=== PATIENT | male | born 1965 | race Caucasian/White ===

== ENCOUNTER 2018-10-29 14:59 | Emergency (ER) | payer OTHER ==
[~2018-10-29] VITALS: Ht 185.4 cm; Wt 104.3 kg
[2018-10-29 16:51] LABS: BASO % 1 % (0-3); EOS % 0 % (0-3); HEMOGLOBIN 14.5 g/dL (13.0-17.5); LYMPH # 1.9 x10^3/uL (1.0-4.8); LYMPH % 32 % (24-48); MEAN CORPUSCULAR HEMOGLOBIN 31 pg (25-35); MEAN CORPUSCULAR HGB CONC 36 g/dL (31-37); MEAN CORPUSCULAR VOLUME 87 fL (79-100); MONO # 0.3 x10^3/uL (0.0-1.1); MONO % 6 % (0-9); NEUT # 3.6 x10^3/uL (1.8-7.7); NEUT % 61 % (31-73); PLATELET COUNT 173 x10^3/uL (140-400); RED CELL DISTRIBUTION WIDTH 13.2 % (11.5-14.5); WHITE BLOOD COUNT 5.9 x10^3/uL (4.0-11.0)
[2018-10-29 17:00] LABS: PROTHROMBIN TIME PATIENT 12.5 SEC (11.7-14.0)
[2018-10-29 17:12] LABS: CALCIUM 9.6 mg/dL (8.5-10.1); GFR 78.2; POTASSIUM 4.5 mmol/L (3.5-5.1)
--- NOTE | 2018-10-29 17:15 | RAD ---
CT HEAD WO CONTRAST Indication: Headache. Exposure: One or more of the following individualized dose reduction techniques were utilized for this examination: 1. Automated exposure control 2. Adjustment of the mA and/or kV according to patient size 3. Use of iterative reconstruction technique. Technique: Standard imaging without intravenous contrast. No evidence of acute intracranial hemorrhage, mass effect, midline shift or abnormal extra-axial fluid collection. Multiple areas of ossification are incidentally noted along the falx. Mild prominence of the bifrontal extra-axial CSF space, likely due to mild atrophy. There is also mild prominence of the right frontal sulci bilaterally. The orbits appear unremarkable. No significant scalp swelling. Partially visualized sinuses demonstrate some tissue within the right maxillary sinus, partially seen, likely mucous retention cyst or polyp versus some mucosal thickening. No evidence of acute skull abnormality. 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 IMPRESSION: 1. No evidence of acute intracranial hemorrhage. 2. Mild atrophic change, particularly in the frontal region. 3. Partially visualized right maxillary sinus disease. Electronically signed by: Eusebio Johnson MD (10/29/2018 5:12 PM) [id number]
[2018-10-29 17:17] LABS: ALBUMIN 3.5 g/dL (3.4-5.0); MAGNESIUM 1.7 mg/dL (1.8-2.4); TOTAL BILIRUBIN 1.3 mg/dL (0.2-1.0)
[2018-10-29] MEDS ORDERED: IV NORMAL SALINE 1000ML BAG 1,000 ML IV ONE (17:30)
--- NOTE | 2018-10-29 17:37 | PHYS DOC ---
Past Medical History Past Medical History: CHF, Diabetes-Type II, High Cholesterol, Hypertension, VA, Stroke Additional Past Medical Histor: GOUT, NEUROPATHY. Past Surgical History: Other Additional Past Surgical Histo: ABDOMEN EXPLORATORY SURGEY Alcohol Use: Rarely Drug Use: None Adult General Chief Complaint Chief Complaint: MULTIPLE COMPLAINTS HPI HPI Patient is a 52 year old AA male who presents to the ER with concerns of having black sticky emesis earlier this morning. PT also complains of generalized body aches, nausea, epigastric abdominal pain, and a headache behind his right eye. He denies any fever, cough, vision changes, dizziness, diarrhea, or blood in his stools. He denies any shortness of breath or palpitations. PT denies history of a stomach ulcer or acid reflux. He currently rates his pain a 9/10 on the pain scale, there are no alleviating or exacerbating factors. Review of Systems Review of Systems Constitutional: Denies fever or chills [] Eyes: Denies change in visual acuity, redness, or eye pain [] HENT: Denies nasal congestion or sore throat [] Respiratory: Denies cough or shortness of breath [] Cardiovascular: No additional information not addressed in HPI [] GI: see HPI : Denies dysuria or hematuria [] Musculoskeletal: Denies back pain or joint pain [] Integument: Denies rash or skin lesions [] Neurologic: Denies focal weakness or sensory changes; see HPI Endocrine: Denies polyuria or polydipsia [] Complete systems were reviewed and found to be within normal limits, except as documented in this note. Current Medications Current Medications Current Medications Medications (Trade) Dose Ordered Sig/Ana Start Time Stop Time Status Last Admin Dose Admin Dexamethasone Sodium Phosphate (Decadron) 10 mg 1X ONCE 10/29/18 18:00 10/29/18 17:40 DC Ketorolac Tromethamine (Toradol 15mg Vial) 15 mg 1X ONCE 10/29/18 18:00 10/29/18 17:40 DC Magnesium Sulfate 50 ml @ 25 mls/hr 1X ONCE 10/29/18 18:45 10/29/18 20:44 Prochlorperazine Edisylate (Compazine) 10 mg 1X ONCE 10/29/18 18:00 10/29/18 17:40 DC Sodium Chloride 1,000 ml @ 1,000 mls/hr 1X ONCE 10/29/18 17:30 10/29/18 18:29 10/29/18 17:32 1,000 MLS/HR Allergies Allergies Allergies Coded Allergies Type Severity Reaction Last Updated Verified No Known Drug Allergies 10/29/18 No Physical Exam Physical Exam Constitutional: Well developed, well nourished, no acute distress, non-toxic appearance. [] HENT: Normocephalic, atraumatic, bilateral external ears normal, oropharynx moist, no oral exudates, nose normal. [] Eyes: PERRLA, EOMI, conjunctiva normal, no discharge. [] Neck: Normal range of motion, no tenderness, supple, no stridor. [] Cardiovascular:Heart rate regular rhythm, no murmur [] Lungs & Thorax: Bilateral breath sounds clear to auscultation [] Abdomen: Bowel sounds normal, soft, no tenderness, no masses, no pulsatile ma sses. [] Skin: Warm, dry, no erythema, no rash. [] Back: No tenderness, no CVA tenderness. [] Extremities: No tenderness, no cyanosis, no clubbing, ROM intact, no edema. [] Neurologic: Alert and oriented X 3, normal motor function, normal sensory function, no focal deficits noted. [] Psychologic: Affect normal, judgement normal, mood normal. [] Current Patient Data Vital Signs Vital Signs Date Time Temp Pulse Resp B/P (MAP) Pulse Ox O2 Delivery O2 Flow Rate FiO2 10/29/18 15:51 98.3 88 16 149/84 (105) 96 98.3 Lab Values Laboratory Tests Test 10/29/18 16:36 10/29/18 17:32 White Blood Count 5.9 x10^3/uL (4.0-11.0) Red Blood Count 4.70 x10^6/uL (4.30-5.70) Hemoglobin 14.5 g/dL (13.0-17.5) Hematocrit 41.0 % (39.0-53.0) Mean Corpuscular Volume 87 fL (79-100) Mean Corpuscular Hemoglobin 31 pg (25-35) Mean Corpuscular Hemoglobin Concent 36 g/dL (31-37) Red Cell Distribution Width 13.2 % (11.5-14.5) Platelet Count 173 x10^3/uL (140-400) Neutrophils (%) (Auto) 61 % (31-73) Lymphocytes (%) (Auto) 32 % (24-48) Monocytes (%) (Auto) 6 % (0-9) Eosinophils (%) (Auto) 0 % (0-3) Basophils (%) (Auto) 1 % (0-3) Neutrophils # (Auto) 3.6 x10^3/uL (1.8-7.7) Lymphocytes # (Auto) 1.9 x10^3/uL (1.0-4.8) Monocytes # (Auto) 0.3 x10^3/uL (0.0-1.1) Eosinophils # (Auto) 0.0 x10^3/uL (0.0-0.7) Basophils # (Auto) 0.0 x10^3/uL (0.0-0.2) Prothrombin Time 12.5 SEC (11.7-14.0) Prothrombin Time INR 1.0 (0.8-1.1) Activated Partial Thromboplast Time 25 SEC (24-38) Sodium Level 139 mmol/L (136-145) Potassium Level 4.5 mmol/L (3.5-5.1) Chloride Level 103 mmol/L (98-107) Carbon Dioxide Level 29 mmol/L (21-32) Anion Gap 7 (6-14) Blood Urea Nitrogen 13 mg/dL (8-26) Creatinine 1.0 mg/dL (0.7-1.3) Estimated GFR (Cockcroft-Gault) 78.2 BUN/Creatinine Ratio 13 (6-20) Glucose Level 295 mg/dL (70-99) H Calcium Level 9.6 mg/dL (8.5-10.1) Magnesium Level 1.7 mg/dL (1.8-2.4) L Total Bilirubin 1.3 mg/dL (0.2-1.0) H Aspartate Amino Transferase (AST) 11 U/L (15-37) L Alanine Aminotransferase (ALT) 15 U/L (16-63) L Alkaline Phosphatase 98 U/L (46-116) Total Protein 7.0 g/dL (6.4-8.2) Albumin 3.5 g/dL (3.4-5.0) Albumin/Globulin Ratio 1.0 (1.0-1.7) Lipase 61 U/L (73-393) L Stool Occult Blood Negative (NEG) Laboratory Tests 10/29/18 16:36 Laboratory Tests 10/29/18 16:36 EKG EKG [] Radiology/Procedures Radiology/Procedures PROCEDURE: CT HEAD WO CONTRAST CT HEAD WO CONTRAST Indication: Headache. Exposure: One or more of the following individualized dose reduction techniques were utilized for this examination: 1. Automated exposure control 2. Adjustment of the mA and/or kV according to patient size 3. Use of iterative reconstruction technique. Technique: Standard imaging without intravenous contrast. No evidence of acute intracranial hemorrhage, mass effect, midline shift or abnormal extra-axial fluid collection. Multiple areas of ossification are incidentally noted along the falx. Mild prominence of the bifrontal extra-axial CSF space, likely due to mild atrophy. There is also mild prominence of the right frontal sulci bilaterally. The orbits appear unremarkable. No significant scalp swelling. Partially visualized sinuses demonstrate some tissue within the right maxillary sinus, partially seen, likely mucous retention cyst or polyp versus some mucosal thickening. No evidence of acute skull abnormality. 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 IMPRESSION: 1. No evidence of acute intracranial hemorrhage. 2. Mild atrophic change, particularly in the frontal region. 3. Partially visualized right maxillary sinus disease.[] Course & Med Decision Making Course & Med Decision Making Pertinent Labs and Imaging studies reviewed. (See chart for details) [] Dragon Disclaimer Dragon Disclaimer This electronic medical record was generated, in whole or in part, using a voice recognition dictation system. Departure Departure Impression: Primary Impression: Hypomagnesemia Additional Impressions: Nausea & vomiting Body aches Disposition: 01 HOME, SELF-CARE Condition: STABLE Referrals: NO PCP (PCP) Patient Instructions: Hypomagnesemia, Nausea and Vomiting, [id number] Additional Instructions: Fill prescriptions and use them as directed. Recommend clear fluids for the next 24 hours. Then you may advance to bland foods such as bananas, rice, applesauce, and dry toast. Follow-up with your primary care doctor in the next 1-2 days. Return to the emergency room if your symptoms worsen. Scripts Ondansetron (ONDANSETRON ODT) 4 Mg Tab.rapdis 1 TAB PO PRN Q6-8HRS PRN for NAUSEA/VOMITING, #16 TAB Prov: BINTA DUKE APRN 10/29/18 Problem Qualifiers Additional Impressions: Nausea & vomiting Vomiting type: unspecified Vomiting Intractability: non-intractable Qualified Codes: R11.2 - Nausea with vomiting, unspecified BINTA DUKE BOTTOMING MACHINE OPERATOR Oct 29, 2018 17:37
[2018-10-29 17:48] LABS: FECAL OB PT NEGATIVE (NEG)
[2018-10-29] MEDS ORDERED: KETOROLAC 15 MG/ML VIAL. IV ONE (18:00)
[2018-10-29] MEDS ORDERED: PROCHLORPERAZINE 10 MG/2 ML VIAL. IV ONE (18:00)
[2018-10-29] MEDS ORDERED: DEXAMETHASONE SOD PHOS 20 MG/5 ML VIAL. IV ONE (18:00)
[2018-10-29] MEDS ORDERED: ONDA4TAB12 PO (18:17)
[2018-10-29] MEDS ORDERED: MAGNESIUM SULFATE 2GM 50 ML IV ONE (18:45)
[2018-10-29 19:44] VITALS: BP 160/83
== END 2018-10-29 20:08 | disposition home or self-care (01) ==
LOC: ER 14:59
DX: E83.42 Hypomagnesemia (principal); R11.2 Nausea with vomiting, unspecified; M79.18 Myalgia, other site; R10.13 Epigastric pain; I11.0 Hypertensive heart disease with heart failure; I50.9 Heart failure, unspecified; I25.2 Old myocardial infarction; E11.40 Type 2 diabetes mellitus with diabetic neuropathy, unspecified; Z86.73 Personal history of transient ischemic attack (TIA), and cerebral infarction without residual deficits
CPT/HCPCS: 36415; 70450; 80053; 82274; 83690; 83735; 85025; 85610; 85730; 96361; 96365; 99285; J3475; J7030

== ENCOUNTER 2020-09-12 21:55 | Inpatient (IN) | payer OTHER ==
[~2020-09-12] VITALS: Ht 182.9 cm; Wt 127.4 kg
[~2020-09-12 21:55] MED LIST: ONDA4TAB12 PO
[2020-09-12 22:16] LABS: BASE EXCESS ABG 2 mmol/L (-3-3); HCO3 ABG 26 mmol/L (21-28); PCO2 ABG 42 mmHg (35-46); PO2 ABG 117 mmHg (75-108); SAT O2 ABG 98 % (92-99)
[2020-09-12 22:17] LABS: FIO2 ABG 36
[2020-09-12 22:19] LABS: BASO % 1 % (0-3); EOS # 0.1 x10^3/uL (0.0-0.7); EOS % 1 % (0-3); HEMATOCRIT 38.3 % (39.0-53.0); HEMOGLOBIN 13.4 g/dL (13.0-17.5); LYMPH # 1.8 x10^3/uL (1.0-4.8); LYMPH % 27 % (24-48); MEAN CORPUSCULAR HEMOGLOBIN 30 pg (25-35); MEAN CORPUSCULAR HGB CONC 35 g/dL (31-37); MEAN CORPUSCULAR VOLUME 85 fL (79-100); MONO # 0.5 x10^3/uL (0.0-1.1); MONO % 8 % (0-9); NEUT # 4.3 x10^3/uL (1.8-7.7); NEUT % 63 % (31-73); PLATELET COUNT 193 x10^3/uL (140-400); RED BLOOD COUNT 4.51 x10^6/uL (4.30-5.70); WHITE BLOOD COUNT 6.7 x10^3/uL (4.0-11.0)
[2020-09-12] MEDS ORDERED: IV NORMAL SALINE 1000ML BAG 1,000 ML IV ONE (22:30)
[2020-09-12 22:32] LABS: CALCIUM 9.6 mg/dL (8.5-10.1); CREATININE 1.6 mg/dL (0.7-1.3); GFR 45.1; POTASSIUM 3.4 mmol/L (3.5-5.1)
--- NOTE | 2020-09-12 22:33 | RAD ---
Exam: CT head INDICATION: Altered mental status TECHNIQUE: Sequential axial images through the head were obtained without the administration of IV co ntrast. Exposure: One or more of the following in the visualized dose reduction techniques were utilized for this examination: 1. Automated exposure control 2. Adjustment of the MA and/or KV according to patient size 3. Use of iterative of reconstructive technique Comparisons: None FINDINGS: No focal parenchymal lesion or hemorrhage is identified. There is no midline shift or sulcal effaceme nt. Mild patchy hypodensity in the periventricular white matter. No acute vascular territory infarction i s identified. Byers-white distinction is preserved. The ventricular system is within normal limits without compression hydrocephalus. The basal cisterns are well maintained. The visualized portions of the paranasal sinuses and mastoid air cells are well-pneumatized. No acute fractures. IMPRESSION: Mild small vessel ischemic change, technically age indeterminate without recent prior imaging. Electronically signed by: Vandana Sánchez MD (09/12/2020 10:30 PM) [facility]
[2020-09-12 22:40] LABS: ALBUMIN 3.4 g/dL (3.4-5.0); MAGNESIUM 2.1 mg/dL (1.8-2.4); TOTAL BILIRUBIN 0.7 mg/dL (0.2-1.0); TOTAL PROTEIN 6.9 g/dL (6.4-8.2)
--- NOTE | 2020-09-12 22:45 | RAD ---
Exam: Chest one view INDICATION: Short of air TECHNIQUE: Frontal view of the chest Comparisons: None FINDINGS: The cardiomediastinal silhouette and pulmonary vessels are within normal limits. Hazy opacity in lungs bilaterally. No pleural effusion. IMPRESSION: Findings which may relate to mild pulmonary edema. Superimposed infectious process is difficult to ex clude. Electronically signed by: Vandana Sánchez MD (09/12/2020 10:43 PM) [facility]
[2020-09-12 22:51] LABS: BILIRUBIN,URINE NEGATIVE (NEG); CLARITY,URINE CLEAR; COLOR,URINE YELLOW; NITRITE,URINE NEGATIVE (NEG); PROTEIN,URINE >=300 mg/dL (NEG-TRACE)
--- NOTE | 2020-09-12 22:52 | RAD ---
Exam: CTA head and neck INDICATION: Unresponsive TECHNIQUE: Sequential axial images through the head and neck obtained following the administration of 75 mL of Omni 350 IV contrast. Sagittal and coronal reformatted images were reconstructed from the a xial data and reviewed. 3-D reformatted images were reconstructed from the axial data and reviewed. Exposure: One or more of the following in the visualized dose reduction techniques were utilized for this examination: 1. Automated exposure control 2. Adjustment of the MA and/or KV according to patient size 3. Use of iterative of reconstructive technique Comparisons: CT head without contrast same day FINDINGS: CTA NECK: Visualized portions of thoracic aorta are unremarkable. Standard three-vessel arch anatomy. Right common carotid artery is patent without evidence of stenosis, occlusion or aneurysm. Mild plaqu e at the origin of the right internal carotid artery without significant stenosis. Left common carotid artery is patent without evidence of stenosis, occlusion or aneurysm. Mild plaque at the origin of the left internal carotid artery without significant stenosis. Right vertebral artery is patent to the basilar confluence without evidence of stenosis, occlusion or aneurysm. Left vertebral artery is patent to basilar confluence without evidence of stenosis, occlusion or aneu rysm. Visualized paraspinal soft tissues are unremarkable. CTA HEAD: Minimal calcified plaque cavernous segment of the right internal carotid artery without significant s tenosis. Right MCA is patent. Right CORAL is patent. Mild calcified plaque at the cavernous segment of the left internal carotid artery without significan t stenosis. Left MCA is patent. Left CORAL is patent. Basilar artery is patent without evidence of stenosis, occlusion or aneurysm. student success counselor are patent bilater ally. IMPRESSION: 1. Patent intracranial cervical arterial vasculature without evidence of stenosis, occlusion or aneu rysm. 2. Mild plaque at the cavernous segments of the internal carotid arteries bilaterally without signif icant stenosis. 3. Minimal plaque at the origin of the internal carotid arteries bilaterally without stenosis stenos is. Electronically signed by: Vandana Sánchez MD (09/12/2020 10:49 PM) [facility]
[2020-09-12 22:55] LABS: BARBITURATES NEG (NEG); BENZODIAZEPINES NEG (NEG); CANNABINOIDS NEG (NEG); COCAINE NEG (NEG); METHADONE NEG (NEG); OPIATES NEG (NEG); PHENCYCLIDINE NEG (NEG)
[2020-09-12 22:56] LABS: BACTERIA,URINE 0 /HPF (0-FEW); HYALINE CASTS, URINE MANY /HPF
[2020-09-12 22:57] LABS: AMPHETAMINE/METHAMPHETAMINE NEG (NEG)
[2020-09-12] MEDS ORDERED: levETIRAcetam 1,000 MG in IV DEXTROSE 5% 100ML 100 ML IV ONE (23:00)
--- NOTE | 2020-09-12 23:14 | PHYS DOC ---
Past Medical History Past Medical History: CHF, Diabetes-Type II, High Cholesterol, Hypertension, AK, Seizure, Stroke, Other Additional Past Medical Histor: GOUT, NEUROPATHY. Past Surgical History: Other Additional Past Surgical Histo: ABDOMEN EXPLORATORY SURGEY Smoking Status: Never Smoker Alcohol Use: Rarely Drug Use: None General Adult EDM: Chief Complaint: ALTERED MENTAL STATUS HPI: HPI: Patient is a 54 year old male who was brought here by EMS from a local restaurant due to nausea vomiting and not feeling well. His son reports that they went to [employer] today to eat dinner. While the family was ordering food, patient said he wanted to use the bathroom. His son said patient was in toilet for 1 hour so he went to heck on him. Patient told him that he was not feeling well. He appeared pale and soaked with sweat. Patient then became very nauseous and proceeded to vomit. EMS were called to take him here for evaluation. When EMS got him into the ambulance, patient became unresponsive.. He was able to protect his airway, he GCS of 3 but he was breathing normal with oxygen saturation of 95% on 2 L they checked his blood sugar and it was 125. Patient has history of hypertension, diabetic, high cholesterol, CHF, seizure disorder. Patient also has multiple heart attacks in the past. Patient never complained of chest pain or headache. There was no seizure activity reported. Upon arrival to ER, patient was only responsive to painful stimuli. He had good gag reflexes, his oxygen saturation was 96% on 2 L. He was in no respiratory distress. Patient had a good blood pressure and strong pulses. It was reported that patient was vaccinated for COVID-19 already. EMS did an EKG on the field and activated code STEMI because there was reported that he had ST elevation IN V1, V2, V3. Review of Systems: Review of Systems: Not able to obtain due to patient condition Heart Score: C/O Chest Pain: N/A Risk Factors: Risk Factors: DM, Current or recent (<one month) smoker, HTN, HLP, family history of CAD, obesity. Risk Scores: Score 0 - 3: 2.5% MACE over next 6 weeks - Discharge Home Score 4 - 6: 20.3% MACE over next 6 weeks - Admit for Clinical Observation Score 7 - 10: 72.7% MACE over next 6 weeks - Early Invasive Strategies Current Medications: Current Medications Medications (Trade) Dose Ordered Sig/Ana Start Time Stop Time Status Last Admin Dose Admin Levetiracetam 1000 mg/Dextrose 110 ml @ 440 mls/hr 1X ONCE 09/12/20 23:00 09/12/20 23:14 Sodium Chloride 1,000 ml @ 1,000 mls/hr 1X ONCE 09/12/20 22:30 09/12/20 23:29 Allergies: Allergies: Allergies Coded Allergies Type Severity Reaction Last Updated Verified No Known Drug Allergies 10/29/18 No Physical Exam: PE: Constitutional: Well developed, well nourished, APPEARED SOMNOLENT. HENT: Normocephalic, atraumatic, bilateral external ears normal, oropharynx moist, no oral exudates, nose normal. [] Eyes: PERRLA, EOMI, conjunctiva normal, no discharge. [] Neck: Normal range of motion, no tenderness, supple, no stridor. [] Cardiovascular:Heart rate regular rhythm, no murmur [] Lungs & Thorax: Bilateral breath sounds clear to auscultation [] Abdomen: Bowel sounds normal, soft, no tenderness, no masses, no pulsatile masses. [] Skin: Warm, dry, no erythema, no rash. [] Back: No tenderness, no CVA tenderness. [] Extremities: No tenderness, no cyanosis, no clubbing, ROM intact, no edema. [] Neurologic:ONLY RESPONSIVE TO PAINFUL STIMULI, HAD GOOD GAG REFLEXES, WAS NOT OBSERVED MOVING ANY EXTREMITIES. It was observed that he opened his eyes to look up once. Psychologic: NOT ABLE TO EVALUATE DUE TO CONDITION. Current Patient Data: Labs: Laboratory Tests Test 09/12/20 21:50 09/12/20 22:07 09/12/20 22:40 O2 Saturation 98 % (92-99) Arterial Blood pH 7.42 (7.35-7.45) Arterial Blood pCO2 at Patient Temp 42 mmHg (35-46) Arterial Blood pO2 at Patient Temp 117 mmHg (75-108) H Arterial Blood HCO3 26 mmol/L (21-28) Arterial Blood Base Excess 2 mmol/L (-3-3) FiO2 36 White Blood Count 6.7 x10^3/uL (4.0-11.0) Red Blood Count 4.51 x10^6/uL (4.30-5.70) Hemoglobin 13.4 g/dL (13.0-17.5) Hematocrit 38.3 % (39.0-53.0) L Mean Corpuscular Volume 85 fL (79-100) Mean Corpuscular Hemoglobin 30 pg (25-35) Mean Corpuscular Hemoglobin Concent 35 g/dL (31-37) Red Cell Distribution Width 14.0 % (11.5-14.5) Platelet Count 193 x10^3/uL (140-400) Neutrophils (%) (Auto) 63 % (31-73) Lymphocytes (%) (Auto) 27 % (24-48) Monocytes (%) (Auto) 8 % (0-9) Eosinophils (%) (Auto) 1 % (0-3) Basophils (%) (Auto) 1 % (0-3) Neutrophils # (Auto) 4.3 x10^3/uL (1.8-7.7) Lymphocytes # (Auto) 1.8 x10^3/uL (1.0-4.8) Monocytes # (Auto) 0.5 x10^3/uL (0.0-1.1) Eosinophils # (Auto) 0.1 x10^3/uL (0.0-0.7) Basophils # (Auto) 0.0 x10^3/uL (0.0-0.2) Sodium Level 146 mmol/L (136-145) H Potassium Level 3.4 mmol/L (3.5-5.1) L Chloride Level 103 mmol/L (98-107) Carbon Dioxide Level 28 mmol/L (21-32) Anion Gap 15 (6-14) H Blood Urea Nitrogen 20 mg/dL (8-26) Creatinine 1.6 mg/dL (0.7-1.3) H Estimated GFR (Cockcroft-Gault) 45.1 BUN/Creatinine Ratio 13 (6-20) Glucose Level 125 mg/dL (70-99) H Calcium Level 9.6 mg/dL (8.5-10.1) Magnesium Level 2.1 mg/dL (1.8-2.4) Total Bilirubin 0.7 mg/dL (0.2-1.0) Aspartate Amino Transferase (AST) 11 U/L (15-37) L Alanine Aminotransferase (ALT) 23 U/L (16-63) Alkaline Phosphatase 92 U/L (46-116) Troponin I Quantitative < 0.017 ng/mL (0.000-0.055) TW-Izw-F-Type Natriuretic Peptide 864 pg/mL (0-124) H Total Protein 6.9 g/dL (6.4-8.2) Albumin 3.4 g/dL (3.4-5.0) Albumin/Globulin Ratio 1.0 (1.0-1.7) Lipase 31 U/L (73-393) L Ethyl Alcohol Level < 10 mg/dL (0-10) Urine Collection Type Unknown Urine Color Yellow Urine Clarity Clear Urine pH 6.0 (<5.0-8.0) Urine Specific [place] >=1.030 (1.000-1.030) Urine Protein >=300 mg/dL (NEG-TRACE) Urine Glucose (UA) 500 mg/dL (NEG) Urine Ketones (Stick) Negative mg/dL (NEG) Urine Blood Trace (NEG) Urine Nitrite Negative (NEG) Urine Bilirubin Negative (NEG) Urine Urobilinogen Dipstick 1.0 mg/dL (0.2 mg/dL) Urine Leukocyte Esterase Negative (NEG) Urine RBC 3-5 /HPF (0-2) Urine WBC 1-4 /HPF (0-4) Urine Squamous Epithelial Cells None /LPF Urine Bacteria 0 /HPF (0-FEW) Urine Hyaline Casts Many /HPF Urine Mucus Marked /LPF Urine Opiates Screen Neg (NEG) Urine Methadone Screen Neg (NEG) Urine Barbiturates Neg (NEG) Urine Phencyclidine Screen Neg (NEG) Urine Amphetamine/Methamphetamine Neg (NEG) Urine Benzodiazepines Screen Neg (NEG) Urine Cocaine Screen Neg (NEG) Urine Cannabinoids Screen Neg (NEG) Urine Ethyl Alcohol Neg (NEG) Laboratory Tests 09/12/20 22:07 Laboratory Tests 09/12/20 22:07 Vital Signs: Vital Signs Date Time Temp Pulse Resp B/P (MAP) Pulse Ox O2 Delivery O2 Flow Rate FiO2 09/12/20 21:55 98.8 76 20 148/84 (108) 94 Nasal Cannula 4.0 98.8 EKG: EKG: EKG was done at 2158, no ST segment elevation, Radiology/Procedures: Radiology/Procedures: [facility] [address] [place], [place] [id number] IMAGING REPORT Signed PATIENT: ALONZO COLMEAN ACCOUNT: [id number] : 1965 LOCATION: ER AGE: 54 SEX: M EXAM STATUS: PRE ER ORD. PHYSICIAN: AHMET RODAS DO REASON: UNRESPONSIVE, STROKE? OMNI 350 75 ML IV PROCEDURE: CT ANGIOGRAPHY HEAD AND NECK Exam: CTA head and neck INDICATION: Unresponsive TECHNIQUE: Sequential axial images through the head and neck obtained following the administration of 75 mL of Omni 350 IV contrast. Sagittal and coronal reform atted images were reconstructed from the axial data and reviewed. 3-D reformatted images were reconstructed from the axial data and reviewed. Exposure: One or more of the following in the visualized dose reduction techniques were utilized for this examination: 1. Automated exposure control 2. Adjustment of the MA and/or KV according to patient size 3. Use of iterative of reconstructive technique Comparisons: CT head without contrast same day FINDINGS: CTA NECK: Visualized portions of thoracic aorta are unremarkable. Standard three-vessel arch anatomy. Right common carotid artery is patent without evidence of stenosis, occlusion or aneurysm. Mild plaque at the origin of the right internal carotid artery without significant stenosis. Left common carotid artery is patent without evidence of stenosis, occlusion or aneurysm. Mild plaque at the origin of the left internal carotid artery without significant stenosis. Right vertebral artery is patent to the basilar confluence without evidence of stenosis, occlusion or aneurysm. Left vertebral artery is patent to basilar confluence without evidence of stenosis, occlusion or aneurysm. Visualized paraspinal soft tissues are unremarkable. CTA HEAD: Minimal calcified plaque cavernous segment of the right internal carotid artery without significant stenosis. Right MCA is patent. Right CORAL is patent. Mild calcified plaque at the cavernous segment of the left internal carotid artery without significant stenosis. Left MCA is patent. Left CORAL is patent. Basilar artery is patent without evidence of stenosis, occlusion or aneurysm. classics teacher are patent bilaterally. IMPRESSION: 1. Patent intracranial cervical arterial vasculature without evidence of stenosis, occlusion or aneurysm. 2. Mild plaque at the cavernous segments of the internal carotid arteries bilaterally without significant stenosis. 3. Minimal plaque at the origin of the internal carotid arteries bilaterally without stenosis stenosis. Electronically signed by: Vandana Tabares MD (09/12/2020 10:49 PM) [facility] DICTATED and SIGNED BY: VANDANA TABARES MD DATE: 09/12/20 [id number] [facility] [address] [place] [address] IMAGING REPORT Signed PATIENT: ALONZO COLEMAN ACCOUNT: [id number] : 1965 LOCATION: ER AGE: 54 SEX: M EXAM STATUS: PRE ER ORD. PHYSICIAN: AHMET RODAS DO REASON: AMS PROCEDURE: CT HEAD WO CONTRAST Exam: CT head INDICATION: Altered mental status TECHNIQUE: Sequential axial images through the head were obtained without the administration of IV contrast. Exposure: One or more of the following in the visualized dose reduction techniques were utilized for this examination: 1. Automated exposure control 2. Adjustment of the MA and/or KV according to patient size 3. Use of iterative of reconstructive technique Comparisons: None FINDINGS: No focal parenchymal lesion or hemorrhage is identified. There is no midline shift or sulcal effacement. Mild patchy hypodensity in the periventricular white matter. No acute vascular territory infarction is identified. Byers-white distinction is preserved. The ventricular system is within normal limits without compression hydrocephalus. The basal cisterns are well maintained. The visualized portions of the paranasal sinuses and mastoid air cells are well- pneumatized. No acute fractures. IMPRESSION: Mild small vessel ischemic change, technically age indeterminate without recent prior imaging. Electronically signed by: Vandana Tabares MD (09/12/2020 10:30 PM) [facility] DICTATED and SIGNED BY: VANDANA TABARES MD DATE: 09/12/20 [id number] [facility] [address] [place] [address] IMAGING REPORT Signed PATIENT: ALONZO COLEMAN ACCOUNT: [id number] : 1965 LOCATION: ER AGE: 54 SEX: M EXAM STATUS: PRE ER ORD. PHYSICIAN: AHMET RODAS DO REASON: SOA PROCEDURE: PORTABLE CHEST 1V Exam: Chest one view INDICATION: Short of air TECHNIQUE: Frontal view of the chest Comparisons: None FINDINGS: The cardiomediastinal silhouette and pulmonary vessels are within normal limits. Hazy opacity in lungs bilaterally. No pleural effusion. IMPRESSION: Findings which may relate to mild pulmonary edema. Superimposed infectious process is difficult to exclude. Electronically signed by: Vandana Tabares MD (09/12/2020 10:43 PM) [facility] DICTATED and SIGNED BY: VANDANA TABARES MD DATE: 09/12/20 [id number] [facility] [address] [place] [address] IMAGING REPORT Signed PATIENT: ALONZO COLEMAN ACCOUNT: [id number] : 1965 LOCATION: ER AGE: 54 SEX: M EXAM STATUS: PRE ER ORD. PHYSICIAN: AHMET RODAS DO REASON: SOA PROCEDURE: PORTABLE CHEST 1V Exam: Chest one view INDICATION: Short of air TECHNIQUE: Frontal view of the chest Comparisons: None FINDINGS: The cardiomediastinal silhouette and pulmonary vessels are within normal limits. Hazy opacity in lungs bilaterally. No pleural effusion. IMPRESSION: Findings which may relate to mild pulmonary edema. Superimposed infectious process is difficult to exclude. Electronically signed by: Vandana Tabares MD (09/12/2020 10:43 PM) [facility] DICTATED and SIGNED BY: VANDANA TABARES MD DATE: 09/12/20 [id number] Course & Med Decision Making: Course & Med Decision Making Pertinent Labs and Imaging studies reviewed. (See chart for details) Patient is a 54-year-old male who was brought here by EMS from a local restaurant due to nausea vomiting, patient became unresponsive ROUTE HERE, code STEMI was activated on the field however twelve-lead EKG did not show any evidence of STEMI. Therefore code STEMI was canceled by this physician after discussed with events and promotions assistant on-call Dr. Aldana. Patient was taken to CT scan, he was having generalized seizure activity while he was in the CT scanner. CT scan head did not show any acute problem, CT angio of head and neck did not show any large vessel occlusion. Discussed with the neurologist ambulance operations supervisor, Dr. Manriquez who recommended no IV TPA due to patient had a seizure while in the CT scanner, he recommended to load patient up with 1 gram of KEPPRA IV AND THEN 500 MG IV BID. At 30 MINUTES AFTER MIDNIGHT, PATIENT BECAME MORE RESPONSIVE TO VERBAL COMMAND, HE WOKE UP AND LOOKED AROUND MOVING HIS HEAD. Dragon Disclaimer: Dragon Disclaimer: This electronic medical record was generated, in whole or in part, using a voice recognition dictation system. Departure Departure Impression: Primary Impression: Seizure Additional Impressions: Altered mental status Pneumonia Disposition: ADMITTED INPATIENT Admitting Physician: CAROLINA (DR. NORRIS) Condition: IMPROVED Referrals: NO PCP (PCP) AHMET RODAS DO Sep 12, 2020 23:14
[2020-09-12] MEDS ORDERED: PIPERACILLIN/TAZOBACTAM 3.375 GM in IV NORMAL SALINE 50ML 50 ML IV ONE (23:45)
[2020-09-13] MEDS ORDERED: ASPIRIN RECTAL 300 MG SUPP. PR ONE
[2020-09-13] MEDS ORDERED: ONDANSETRON PF 4 MG/2 ML VIAL. IVP PRN ×2 (00:30→09:00)
[2020-09-13] MEDS: IV NORMAL SALINE 1000ML BAG 1,000 ML IV SCH ×2 (00:37→13:50)
--- NOTE | 2020-09-13 02:28 | EKG ---
[facility] [address] [place] [address] Test Date: 2020-09-12 Test Time: 21:58:30 Pat Name: ALONZO COLEMAN Department: Room: Gender: M Health Program Manager: [email or web address] : 1965 Requested By: AHMET RODAS Order Number: [id number] Reading MD: Measurements Intervals [place] Rate: 83 P: 55 OK: 164 QRS: 39 QRSD: 96 T: 152 QT: 372 QTc: 443 Interpretive Statements SINUS RHYTHM INTERPOLATED VENTRICULAR PREMATURE COMPLEX(ES) INTERPOLATED ATRIAL PREMATURE COMPLEX(ES) ST & T ABNORMALITY, CONSIDER HIGH LATERAL ISCHEMIA OR LEFT VENTRICULAR STRAIN ABNORMAL ECG RI6.02 No previous ECG available for comparison
--- NOTE | 2020-09-13 02:34 | EKG ---
[facility] [address] [place] [address] Test Date: 2020-09-12 Test Time: 22:10:30 Pat Name: ALONZO COLEMAN Department: Room: Gender: M Sales And Service Advisor: [email or web address] : 1965 Requested By: AHMET RODAS Order Number: [id number] Reading MD: Measurements Intervals [place] Rate: 84 P: 47 ID: [id number] QRS: 44 QRSD: 100 T: 155 QT: 372 QTc: 443 Interpretive Statements SINUS RHYTHM VENTRICULAR PREMATURE COMPLEX(ES) INTERPOLATED VENTRICULAR PREMATURE COMPLEX(ES) ST & T ABNORMALITY, CONSIDER HIGH LATERAL ISCHEMIA OR LEFT VENTRICULAR STRAIN INFERIOR ISCHEMIA OR LEFT VENTRICULAR STRAIN ABNORMAL ECG RI6.02 No previous ECG available for comparison
[2020-09-13] MEDS ORDERED: CONTRAST GIVEN. MC PRN (03:15)
[2020-09-13 03:18] VITALS: BP 139/82
[2020-09-13] MEDS ORDERED: IOHEXOL 350 MG/ML 100 ML VIAL. IV ONE (03:30)
--- NOTE | 2020-09-13 04:43 | NUR ---
Pt to room 565 from ER via gurney at 0220. Tele monitor applied, bed alarm in place, bed rails padded. Pt unresponsive; admission questions not completed at this time. Will pass on to day shift.
[2020-09-13 07:00] VITALS: BP 119/50
--- NOTE | 2020-09-13 07:43 | PDOC1 ---
History and Physical Date of Admission Date of Admission DATE: 09/13/20 TIME: 07:10 Identification/Chief Complaint Chief Complaint AMS Source Source: Chart review, Patient History of Present Illness History of Present Illness Patient 54-year-old male with past medical history NC, CHF, DM2, who presents to the ED for evaluation of altered mental status. Patient was out at dinner last night with family when he reportedly became very nauseous and proceeded to vomit. EMS was contacted when he became diaphoretic and unresponsive. Code STEMI was activated by EMS and arrived to the ED. Upon arrival, case was discussed with on-call cardiology and code STEMI was canceled. Labs on admission showed WBC 6.7, sodium 146, potassium 3.4, creatinine 1.6, CBG 125, BNP 864, lactic acid 2.1, troponins undetectable x3. While in CT, patient began having generalized seizure-like activity. CT head did not show any acute abnormality, and CT angio of head and neck did not show any large vessel occlusion. Case was discussed with on-call neurologist, who recommended 1 g of Keppra IV, then 500 mg Keppra IV twice daily. Patient was admitted for further medical management. Past Medical History Past Medical History NC, CVA, CHF, DM2, HLD, HTN, gout, neuropathy Past Surgical History Past Surgical History Abdominal exploratory laparotomy Family History Family History: Heart Disease Social History Smoke: No ALCOHOL: rare Drugs: None Current Problem List Problem List Problems Medical Problems: (1) Altered mental status Status: Acute (2) Pneumonia Status: Acute (3) Seizure Status: Acute Current Medications Current Medications Current Medications Sodium Chloride 1,000 ml @ 1,000 mls/hr 1X ONCE IV Last administered on 09/12/20at 22:30; Start 09/12/20 at 22:30; Stop 09/12/20 at 23:29; Status DC Levetiracetam 1000 mg/Dextrose 110 ml @ 440 mls/hr 1X ONCE IV Last administered on 09/12/20at 23:32; Start 09/12/20 at 23:00; Stop 09/12/20 at 23:14; Status DC Piperacillin Sod/ Tazobactam Sod 3.375 gm/Sodium Chloride 50 ml @ 100 mls/hr 1X ONCE IV Last administered on 09/13/20at 00:34; Start 09/12/20 at 23:45; Stop 09/13/20 at 00:14; Status DC Aspirin (Aspirin Rectal Supp) 300 mg 1X ONCE OH Last administered on 09/13/20at 00:35; Start 09/13/20 at 00:00; Stop 09/13/20 at 00:01; Status DC Ondansetron HCl (Zofran) 4 mg PRN Q8HRS PRN IVP NAUSEA/VOMITING 1ST CHOICE; Start 09/13/20 at 00:30; Stop 09/14/20 at 00:29 Sodium Chloride 1,000 ml @ 75 mls/hr [id number] IV Last administered on 09/13/20at 00:37; Start 09/13/20 at 00:30; Stop 09/14/20 at 00:29 Levetiracetam 500 mg/Dextrose 105 ml @ 420 mls/hr Q12HR IV ; Start 09/13/20 at 09:00 Iohexol (Omnipaque 350 Mg/ml) 75 ml 1X ONCE IV Last administered on 09/13/20at 03:14; Start 09/13/20 at 03:30; Stop 09/13/20 at 03:31; Status DC Info (CONTRAST GIVEN -- Rx MONITORING) 1 each PRN DAILY PRN MC SEE COMMENTS; Start 09/13/20 at 03:15; Stop 09/15/20 at 03:14 Active Scripts Active Ondansetron Odt (Ondansetron) 4 Mg Tab.rapdis 1 Tab PO PRN Q6-8HRS PRN Allergies Allergies: Coded Allergies: No Known Drug Allergies (Unverified , 10/29/18) ROS Review of System GENERAL: No history of weight change, weakness or fevers. SKIN: No bruising, hair changes or rashes. EYES: No blurred, double or loss of vision. NOSE AND THROAT: No history of nosebleeds, hoarseness or sore throat. HEART: Denies chest pain, denies palpitations. LUNGS: Denies cough, hemoptysis, wheezing or shortness of breath. GASTROINTESTINAL: Nausea and vomiting. Denies abdominal pain. GENITOURINARY: Denies dysuria, frequency, urgency, hematuria. NEUROLOGIC: Denies history of numbness, tingling, tremor or weakness. PSYCHIATRIC: Denies anxiety, denies depression. ENDOCRINE: No history of heat or cold intolerance, polyuria or polydipsia. EXTREMITIES: Denies muscle weakness, joint pain, pain on walking or stiffness. Physical Exam Physical Exam General: Alert, Oriented X3, Cooperative, No acute distress HEENT: PERRLA, EOMI Lungs: Bilateral crackles, Normal air movement Heart: RRR, no murmurs Cardiovascular: S1, S2 Abdomen: Normal bowel sounds, Soft, No tenderness Extremities: +3 bilateral lower extremity edema. No clubbing, No cyanosis Skin: No rashes, No significant lesion Neuro: Normal speech, Normal tone, Sensation intact Psych/Mental Status: Mental status NL, Mood NL Vitals Vitals Vital Signs Date Time Temp Pulse Resp B/P (MAP) Pulse Ox O2 Delivery O2 Flow Rate FiO2 09/13/20 03:31 Room Air 09/13/20 03:18 97.7 78 18 139/82 (101) 96 97.7 09/13/20 01:09 4.0 Labs Labs Laboratory Tests Test 09/12/20 21:50 09/12/20 22:07 09/12/20 22:40 09/12/20 22:50 O2 Saturation 98 % (92-99) Arterial Blood pH 7.42 (7.35-7.45) Arterial Blood pCO2 at Patient Temp 42 mmHg (35-46) Arterial Blood pO2 at Patient Temp 117 mmHg (75-108) Arterial Blood HCO3 26 mmol/L (21-28) Arterial Blood Base Excess 2 mmol/L (-3-3) FiO2 36 White Blood Count 6.7 x10^3/uL (4.0-11.0) Red Blood Count 4.51 x10^6/uL (4.30-5.70) Hemoglobin 13.4 g/dL (13.0-17.5) Hematocrit 38.3 % (39.0-53.0) Mean Corpuscular Volume 85 fL (79-100) Mean Corpuscular Hemoglobin 30 pg (25-35) Mean Corpuscular Hemoglobin Concent 35 g/dL (31-37) Red Cell Distribution Width 14.0 % (11.5-14.5) Platelet Count 193 x10^3/uL (140-400) Neutrophils (%) (Auto) 63 % (31-73) Lymphocytes (%) (Auto) 27 % (24-48) Monocytes (%) (Auto) 8 % (0-9) Eosinophils (%) (Auto) 1 % (0-3) Basophils (%) (Auto) 1 % (0-3) Neutrophils # (Auto) 4.3 x10^3/uL (1.8-7.7) Lymphocytes # (Auto) 1.8 x10^3/uL (1.0-4.8) Monocytes # (Auto) 0.5 x10^3/uL (0.0-1.1) Eosinophils # (Auto) 0.1 x10^3/uL (0.0-0.7) Basophils # (Auto) 0.0 x10^3/uL (0.0-0.2) Sodium Level 146 mmol/L (136-145) Potassium Level 3.4 mmol/L (3.5-5.1) Chloride Level 103 mmol/L (98-107) Carbon Dioxide Level 28 mmol/L (21-32) Anion Gap 15 (6-14) Blood Urea Nitrogen 20 mg/dL (8-26) Creatinine 1.6 mg/dL (0.7-1.3) Estimated GFR (Cockcroft-Gault) 45.1 BUN/Creatinine Ratio 13 (6-20) Glucose Level 125 mg/dL (70-99) Lactic Acid Level 2.1 mmol/L (0.4-2.0) Calcium Level 9.6 mg/dL (8.5-10.1) Magnesium Level 2.1 mg/dL (1.8-2.4) Total Bilirubin 0.7 mg/dL (0.2-1.0) Aspartate Amino Transf (AST/SGOT) 11 U/L (15-37) Alanine Aminotransferase (ALT/SGPT) 23 U/L (16-63) Alkaline Phosphatase 92 U/L (46-116) Troponin I Quantitative < 0.017 ng/mL (0.000-0.055) HX-Kbx-M-Type Natriuretic Peptide 864 pg/mL (0-124) Total Protein 6.9 g/dL (6.4-8.2) Albumin 3.4 g/dL (3.4-5.0) Albumin/Globulin Ratio 1.0 (1.0-1.7) Lipase 31 U/L (73-393) Ethyl Alcohol Level < 10 mg/dL (0-10) Urine Collection Type Unknown Urine Color Yellow Urine Clarity Clear Urine pH 6.0 (<5.0-8.0) Urine Specific [place] >=1.030 (1.000-1.030) Urine Protein >=300 mg/dL (NEG-TRACE) Urine Glucose (UA) 500 mg/dL (NEG) Urine Ketones (Stick) Negative mg/dL (NEG) Urine Blood Trace (NEG) Urine Nitrite Negative (NEG) Urine Bilirubin Negative (NEG) Urine Urobilinogen Dipstick 1.0 mg/dL (0.2 mg/dL) Urine Leukocyte Esterase Negative (NEG) Urine RBC 3-5 /HPF (0-2) Urine WBC 1-4 /HPF (0-4) Urine Squamous Epithelial Cells None /LPF Urine Bacteria 0 /HPF (0-FEW) Urine Hyaline Casts Many /HPF Urine Mucus Marked /LPF Urine Opiates Screen Neg (NEG) Urine Methadone Screen Neg (NEG) Urine Barbiturates Neg (NEG) Urine Phencyclidine Screen Neg (NEG) Urine Amphetamine/Methamphetamine Neg (NEG) Urine Benzodiazepines Screen Neg (NEG) Urine Cocaine Screen Neg (NEG) Urine Cannabinoids Screen Neg (NEG) Urine Ethyl Alcohol Neg (NEG) SARS-CoV-2 Antigen (Rapid) Negative (NEGATIVE) Test 09/13/20 01:05 09/13/20 04:05 Lactic Acid Level 0.9 mmol/L (0.4-2.0) Troponin I Quantitative < 0.017 ng/mL (0.000-0.055) < 0.017 ng/mL (0.000-0.055) Laboratory Tests Test 09/12/20 21:50 09/12/20 22:07 09/12/20 22:40 09/12/20 22:50 O2 Saturation 98 % (92-99) Arterial Blood pH 7.42 (7.35-7.45) Arterial Blood pCO2 at Patient Temp 42 mmHg (35-46) Arterial Blood pO2 at Patient Temp 117 mmHg (75-108) Arterial Blood HCO3 26 mmol/L (21-28) Arterial Blood Base Excess 2 mmol/L (-3-3) FiO2 36 White Blood Count 6.7 x10^3/uL (4.0-11.0) Red Blood Count 4.51 x10^6/uL (4.30-5.70) Hemoglobin 13.4 g/dL (13.0-17.5) Hematocrit 38.3 % (39.0-53.0) Mean Corpuscular Volume 85 fL (79-100) Mean Corpuscular Hemoglobin 30 pg (25-35) Mean Corpuscular Hemoglobin Concent 35 g/dL (31-37) Red Cell Distribution Width 14.0 % (11.5-14.5) Platelet Count 193 x10^3/uL (140-400) Neutrophils (%) (Auto) 63 % (31-73) Lymphocytes (%) (Auto) 27 % (24-48) Monocytes (%) (Auto) 8 % (0-9) Eosinophils (%) (Auto) 1 % (0-3) Basophils (%) (Auto) 1 % (0-3) Neutrophils # (Auto) 4.3 x10^3/uL (1.8-7.7) Lymphocytes # (Auto) 1.8 x10^3/uL (1.0-4.8) Monocytes # (Auto) 0.5 x10^3/uL (0.0-1.1) Eosinophils # (Auto) 0.1 x10^3/uL (0.0-0.7) Basophils # (Auto) 0.0 x10^3/uL (0.0-0.2) Sodium Level 146 mmol/L (136-145) Potassium Level 3.4 mmol/L (3.5-5.1) Chloride Level 103 mmol/L (98-107) Carbon Dioxide Level 28 mmol/L (21-32) Anion Gap 15 (6-14) Blood Urea Nitrogen 20 mg/dL (8-26) Creatinine 1.6 mg/dL (0.7-1.3) Estimated GFR (Cockcroft-Gault) 45.1 BUN/Creatinine Ratio 13 (6-20) Glucose Level 125 mg/dL (70-99) Lactic Acid Level 2.1 mmol/L (0.4-2.0) Calcium Level 9.6 mg/dL (8.5-10.1) Magnesium Level 2.1 mg/dL (1.8-2.4) Total Bilirubin 0.7 mg/dL (0.2-1.0) Aspartate Amino Transf (AST/SGOT) 11 U/L (15-37) Alanine Aminotransferase (ALT/SGPT) 23 U/L (16-63) Alkaline Phosphatase 92 U/L (46-116) Troponin I Quantitative < 0.017 ng/mL (0.000-0.055) RQ-Kyj-I-Type Natriuretic Peptide 864 pg/mL (0-124) Total Protein 6.9 g/dL (6.4-8.2) Albumin 3.4 g/dL (3.4-5.0) Albumin/Globulin Ratio 1.0 (1.0-1.7) Lipase 31 U/L (73-393) Ethyl Alcohol Level < 10 mg/dL (0-10) Urine Collection Type Unknown Urine Color Yellow Urine Clarity Clear Urine pH 6.0 (<5.0-8.0) Urine Specific [place] >=1.030 (1.000-1.030) Urine Protein >=300 mg/dL (NEG-TRACE) Urine Glucose (UA) 500 mg/dL (NEG) Urine Ketones (Stick) Negative mg/dL (NEG) Urine Blood Trace (NEG) Urine Nitrite Negative (NEG) Urine Bilirubin Negative (NEG) Urine Urobilinogen Dipstick 1.0 mg/dL (0.2 mg/dL) Urine Leukocyte Esterase Negative (NEG) Urine RBC 3-5 /HPF (0-2) Urine WBC 1-4 /HPF (0-4) Urine Squamous Epithelial Cells None /LPF Urine Bacteria 0 /HPF (0-FEW) Urine Hyaline Casts Many /HPF Urine Mucus Marked /LPF Urine Opiates Screen Neg (NEG) Urine Methadone Screen Neg (NEG) Urine Barbiturates Neg (NEG) Urine Phencyclidine Screen Neg (NEG) Urine Amphetamine/Methamphetamine Neg (NEG) Urine Benzodiazepines Screen Neg (NEG) Urine Cocaine Screen Neg (NEG) Urine Cannabinoids Screen Neg (NEG) Urine Ethyl Alcohol Neg (NEG) SARS-CoV-2 Antigen (Rapid) Negative (NEGATIVE) Test 09/13/20 01:05 09/13/20 04:05 Lactic Acid Level 0.9 mmol/L (0.4-2.0) Troponin I Quantitative < 0.017 ng/mL (0.000-0.055) < 0.017 ng/mL (0.000-0.055) Images Images PATIENT: ALONZO HANSEN ACCOUNT: [id number] : 1965 LOCATION: ER AGE: 54 SEX: M EXAM STATUS: PRE ER ORD. PHYSICIAN: AHMET RODAS DO REASON: UNRESPONSIVE, STROKE? OMNI 350 75 ML IV PROCEDURE: CT ANGIOGRAPHY HEAD AND NECK Exam: CTA head and neck INDICATION: Unresponsive TECHNIQUE: Sequential axial images through the head and neck obtained following the administration of 75 mL of Omni 350 IV contrast. Sagittal and coronal reformatted images were reconstructed from the axial data and reviewed. 3-D reformatted images were reconstructed from the axial data and reviewed. Exposure: One or more of the following in the visualized dose reduction techniques were utilized for this examination: 1. Automated exposure control 2. Adjustment of the MA and/or KV according to patient size 3. Use of iterative of reconstructive technique Comparisons: CT head without contrast same day FINDINGS: CTA NECK: Visualized portions of thoracic aorta are unremarkable. Standard three-vessel arch anatomy. Right common carotid artery is patent without evidence of stenosis, occlusion or aneurysm. Mild plaque at the origin of the right internal carotid artery without significant stenosis. Left common carotid artery is patent without evidence of stenosis, occlusion or aneurysm. Mild plaque at the origin of the left internal carotid artery without significant stenosis. Right vertebral artery is patent to the basilar confluence without evidence of stenosis, occlusion or aneurysm. Left vertebral artery is patent to basilar confluence without evidence of stenosis, occlusion or aneurysm. Visualized paraspinal soft tissues are unremarkable. CTA HEAD: Minimal calcified plaque cavernous segment of the right internal carotid artery without significant stenosis. Right MCA is patent. Right CORAL is patent. Mild calcified plaque at the cavernous segment of the left internal carotid artery without significant stenosis. Left MCA is patent. Left CORAL is patent. Basilar artery is patent without evidence of stenosis, occlusion or aneurysm. [employer] are patent bilaterally. IMPRESSION: 1. Patent intracranial cervical arterial vasculature without evidence of stenosis, occlusion or aneurysm. 2. Mild plaque at the cavernous segments of the internal carotid arteries bilaterally without significant stenosis. 3. Minimal plaque at the origin of the internal carotid arteries bilaterally without stenosis stenosis. Electronically signed by: Vandana Tabares MD (09/12/2020 10:49 PM) [facility] DICTATED and SIGNED BY: VANDANA TABARES MD DATE: 09/12/20 [id number] [facility] [address] [place] [address] IMAGING REPORT Signed PATIENT: ALONZO HANSEN ACCOUNT: [id number] : 1965 LOCATION: ER AGE: 54 SEX: M EXAM STATUS: PRE ER ORD. PHYSICIAN: AHMET RODAS DO REASON: AMS PROCEDURE: CT HEAD WO CONTRAST Exam: CT head INDICATION: Altered mental status TECHNIQUE: Sequential axial images through the head were obtained without the administration of IV contrast. Exposure: One or more of the following in the visualized dose reduction techniques were utilized for this examination: 1. Automated exposure control 2. Adjustment of the MA and/or KV according to patient size 3. Use of iterative of reconstructive technique Comparisons: None FINDINGS: No focal parenchymal lesion or hemorrhage is identified. There is no midline shift or sulcal effacement. Mild patchy hypodensity in the periventricular white matter. No acute vascular territory infarction is identified. Byers-white distinction is preserved. The ventricular system is within normal limits without compression hydrocephalus. The basal cisterns are well maintained. The visualized portions of the paranasal sinuses and mastoid air cells are well- pneumatized. No acute fractures. IMPRESSION: Mild small vessel ischemic change, technically age indeterminate without recent prior imaging. Electronically signed by: Vandana Tabares MD (09/12/2020 10:30 PM) [facility] DICTATED and SIGNED BY: VANDANA TABARES MD DATE: 09/12/20 [id number] [facility] [address] [place] [address] IMAGING REPORT Signed PATIENT: ALONZO HANSEN ACCOUNT: [id number] : 1965 LOCATION: ER AGE: 54 SEX: M EXAM STATUS: PRE ER ORD. PHYSICIAN: AHMET RODAS DO REASON: SOA PROCEDURE: PORTABLE CHEST 1V Exam: Chest one view INDICATION: Short of air TECHNIQUE: Frontal view of the chest Comparisons: None FINDINGS: The cardiomediastinal silhouette and pulmonary vessels are within normal limits. Hazy opacity in lungs bilaterally. No pleural effusion. IMPRESSION: Findings which may relate to mild pulmonary edema. Superimposed infectious process is difficult to exclude. Electronically signed by: Vandana Tabares MD (09/12/2020 10:43 PM) [facility] DICTATED and SIGNED BY: VANDANA TABARES MD DATE: 09/12/20 [id number] VTE Prophylaxis Ordered VTE Prophylaxis Devices: No VTE Pharmacological Prophylaxi: Yes Assessment/Plan Assessment/Plan Altered mental status Abnormal chest x-ray - pulmonary edema versus infectious process Seizure CHAN due to vasomotor nephropathy Lactic acidosis Plan: Patient denies prior history of seizure disorder. Will continue Keppra 500 mg twice daily; consultation placed to neurology Discussed with Dr. Bunch, will cover for community-acquired pneumonia (possibly gram-negative or possibly gram-positive organism). Troponins <0.017 x 3. Will obtain echocardiogram. Baseline kidney function from 10/29/2018 showed creatinine 1.0 with eGFR 78.2. Will provide IV fluids and continue to monitor. Resume home medications FEN - Cardiac diet PPX - Lovenox FULL CODE Dispo - inpatient for above Patient names his son (Alonzo Hansen (RJ)) as surrogate decision-maker Justifications for Admission Other Justification SHARIF BOB MD Sep 13, 2020 07:43
[2020-09-13] MEDS ORDERED: CALCIUM CARBONATE 500 MG TAB.CHEW PO PRN (09:00)
[2020-09-13] MEDS ORDERED: ENOXAPARIN 40 MG/0.4 ML SYRINGE. SQ SCH (09:00)
[2020-09-13] MEDS ORDERED: MAG HYDROX/ALUMINUM HYD/SIMETH 30 ML ORAL.SUSP PO PRN (09:00)
[2020-09-13] MEDS ORDERED: levETIRAcetam 500 MG in IV DEXTROSE 5% 100ML 100 ML IV SCH (09:00)
[2020-09-13] MEDS ORDERED: ACETAMINOPHEN 325 MG TABLET. PO PRN (09:00)
[2020-09-13] MEDS ORDERED: cefTRIAXone IV Push 1 GM VIAL. IVP SCH (09:00)
[2020-09-13] MEDS ORDERED: ZOLPIDEM 5 MG TABLET. PO PRN (09:00)
[2020-09-13] MEDS ORDERED: HYDROcodone/APAP 5/325MG 1 TAB TABLET PO PRN (09:00)
[2020-09-13] MEDS ORDERED: MAGNESIUM HYDROXIDE 2,400 MG/30 ML ORAL.SUSP. PO PRN (09:00)
[2020-09-13] MEDS ORDERED: DOXYCYCLINE HYCLATE 100 MG TABLET PO SCH (09:00)
[2020-09-13 09:58] LABS: BASO % 0 % (0-3); EOS # 0.1 x10^3/uL (0.0-0.7); EOS % 1 % (0-3); HEMATOCRIT 37.5 % (39.0-53.0); HEMOGLOBIN 13.1 g/dL (13.0-17.5); LYMPH # 2.2 x10^3/uL (1.0-4.8); LYMPH % 30 % (24-48); MEAN CORPUSCULAR HEMOGLOBIN 30 pg (25-35); MEAN CORPUSCULAR HGB CONC 35 g/dL (31-37); MEAN CORPUSCULAR VOLUME 86 fL (79-100); MONO # 0.5 x10^3/uL (0.0-1.1); MONO % 7 % (0-9); NEUT # 4.5 x10^3/uL (1.8-7.7); NEUT % 61 % (31-73); PLATELET COUNT 181 x10^3/uL (140-400); RED BLOOD COUNT 4.39 x10^6/uL (4.30-5.70); RED CELL DISTRIBUTION WIDTH 14.2 % (11.5-14.5); WHITE BLOOD COUNT 7.3 x10^3/uL (4.0-11.0)
[2020-09-13 10:20] LABS: CALCIUM 8.8 mg/dL (8.5-10.1); GFR 93.9; POTASSIUM 3.5 mmol/L (3.5-5.1)
--- NOTE | 2020-09-13 10:54 | NUR ---
SW following. Discussed with RN, pt from home, room air, cardiac diet, COVID-19 negative. Neurology following. RN advised no SW needs at this time. SW will continue to follow.
[2020-09-13 11:00] VITALS: BP 167/91
--- NOTE | 2020-09-13 13:07 | PDOC2 ---
NEUROLOGY CONSULT Date of Service DOS: DATE: 09/13/20 TIME: 12:59 Reason for Consult Reason for Consult: Seizures Referring Physician Referring Physician: Dr. Hahn PCP: ROHITH Source Source: Chart review, Patient History of Present Illness History of Present Illness The patient is a 54-year-old right-handed male who was sitting at dinner at [employer] He felt a little sick and went to the bathroom. His son went to check on him about an hour later and found him diaphoretic, nauseated. He then fainted. He was unresponsive, but still maintaining his airway. It was thought he was having a myocardial infarction, but he has ruled out. Later, attention was turned to the brain, and the patient underwent CT of the head and CT angiogram. While in the CT scanner, he had seizure activity. Dr. Quach spoke to Dr. Manriquez, on-call for neurology, who ordered loading dose of levetiracetam. Patient has had no additional seizures. He denies any prior history of stroke, seizure, or significant head injury. He does have diabetes but does not think his sugar was low. There is no family history of seizures and he denies alcohol or street drug use. He is not sleep deprived or under any significant stress. 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 Current Medications Current Medications Current Medications Sodium Chloride 1,000 ml @ 1,000 mls/hr 1X ONCE IV Last administered on at 22:30; Start 09/12/20 at 22:30; Stop 09/12/20 at 23:29; Status DC Levetiracetam 1000 mg/Dextrose 110 ml @ 440 mls/hr 1X ONCE IV Last administered on 09/12/20at 23:32; Start 09/12/20 at 23:00; Stop 09/12/20 at 23:14; Status DC Piperacillin Sod/ Tazobactam Sod 3.375 gm/Sodium Chloride 50 ml @ 100 mls/hr 1X ONCE IV Last administered on 09/13/20at 00:34; Start 09/12/20 at 23:45; Stop 09/13/20 at 00:14; Status DC Aspirin (Aspirin Rectal Supp) 300 mg 1X ONCE GA Last administered on 09/13/20at 00:35; Start 09/13/20 at 00:00; Stop 09/13/20 at 00:01; Status DC Ondansetron HCl (Zofran) 4 mg PRN Q8HRS PRN IVP NAUSEA/VOMITING 1ST CHOICE; S tart 09/13/20 at 00:30; Stop 09/13/20 at 09:03; Status DC Sodium Chloride 1,000 ml @ 75 mls/hr [id number] IV Last administered on 09/13/20at 00:37; Start 09/13/20 at 00:30; Stop 09/14/20 at 00:29 Levetiracetam 500 mg/Dextrose 105 ml @ 420 mls/hr Q12HR IV Last administered on 09/13/20at 10:51; Start 09/13/20 at 09:00; Stop 09/13/20 at 12:30; Status DC Iohexol (Omnipaque 350 Mg/ml) 75 ml 1X ONCE IV Last administered on 09/13/20at 03:14; Start 09/13/20 at 03:30; Stop 09/13/20 at 03:31; Status DC Info (CONTRAST GIVEN -- Rx MONITORING) 1 each PRN DAILY PRN MC SEE COMMENTS; Start 09/13/20 at 03:15; Stop 09/15/20 at 03:14 Ceftriaxone Sodium (Rocephin) 1 gm Q24H IVP Last administered on 09/13/20at 10:51; Start 09/13/20 at 09:00 Doxycycline Hyclate (Vibra-Tab) 100 mg BID PO Last administered on 09/13/20at 10:51; Start 09/13/20 at 09:00 Ondansetron HCl (Zofran) 4 mg PRN Q6HRS PRN IVP NAUSEA/VOMITING; Start 09/13/20 at 09:00 Al Hydroxide/Mg Hydroxide (Mylanta Plus Xs) 30 ml PRN Q3HRS PRN PO HEARTBURN / GAS; Start 09/13/20 at 09:00 Calcium Carbonate/ Glycine (Tums) 500 mg PRN Q3HRS PRN PO UPSET STOMACH; Start 8/2/21 at 09:00 Zolpidem Tartrate (Ambien) 5 mg PRN QHS PRN PO INSOMNIA, MAY REPEAT IN 1HR; Start 09/13/20 at 09:00 Acetaminophen/ Hydrocodone Bitart (Lortab 5/325) 1 tab PRN Q4HRS PRN PO MODERATE-SEVERE PAIN; Start 09/13/20 at 09:00 Acetaminophen (Tylenol) 650 mg PRN Q6HRS PRN PO Headaches, Temp > 101.5F; Start 09/13/20 at 09:00 Magnesium Hydroxide (Milk Of Magnesia) 2,400 mg PRN Q12HR PRN PO CONSTIPATION; Start 09/13/20 at 09:00 Enoxaparin Sodium (Lovenox 40mg Syringe) 40 mg Q24H SQ Last administered on 09/13/20at 10:51; Start 09/13/20 at 09:00 Levetiracetam (Keppra) 500 mg BID PO ; Start 09/13/20 at 21:00 Active Scripts Active Ondansetron Odt (Ondansetron) 4 Mg Tab.rapdis 1 Tab PO PRN Q6-8HRS PRN Allergies Allergies: Coded Allergies: No Known Drug Allergies (Unverified , 10/29/18) ROS Review of System Negative for fever, chills, weight loss, shortness of breath, chest pain, indigestion, hematochezia, melena, and dysuria. Full 14-point review of systems is negative. Physical Exam Physical Examination General: Well-developed, well-nourished black male in no acute distress HEENT: Normocephalic andatraumatic. Tympanic membranes clear.Temporal arteriespulsatile and nontender.Fundoscopic exam unremarkable Neck: Supple without bruit, no meningismus Musculoskeletal: Stability:see neurologic. Gait exam:see neurologic. Tone:see neurologic.Strength:see neurologic. Neurological: Mental Status:intact, orientation, memory, attention span/concentration, language, fund of knowledge normal. Cranial Nerves:Pupils equal and reactive to light, extraocular movements areintact, visual mathias are full to confrontation. Facial sensation is normal. There is no facial asymmetry. At first I thought there was a tendency for bilateral ptosis, but the patient says he is just sleepy and later the eyes were wide open. Vestibulo-ocular reflex is intact. Palate elevates and tongue protrudes in midline. All other cranial related problems are negative except as mentioned before.Reflexes:2+ and symmetric with flexor plantar responses. Motor:5/5 strength with normal tone and bulk. Coordination:Finger-nose finger and [id number] testing are normal. Rapid alternating movements and fine finger movements are intact. Gait:Not tested, has Quiroz in. Sensory:Normal pinprick, vibration, light touch, proprioception. Vitals VITALS Vital Signs Date Time Temp Pulse Resp B/P (MAP) Pulse Ox O2 Delivery O2 Flow Rate FiO2 09/13/20 07:00 97.5 93 18 119/50 (73) 93 Nasal Cannula 97.5 09/13/20 01:09 4.0 Labs Labs Laboratory Tests Test 09/12/20 21:50 09/12/20 22:07 09/12/20 22:40 09/12/20 22:50 O2 Saturation 98 % (92-99) Arterial Blood pH 7.42 (7.35-7.45) Arterial Blood pCO2 at Patient Temp 42 mmHg (35-46) Arterial Blood pO2 at Patient Temp 117 mmHg (75-108) Arterial Blood HCO3 26 mmol/L (21-28) Arterial Blood Base Excess 2 mmol/L (-3-3) FiO2 36 White Blood Count 6.7 x10^3/uL (4.0-11.0) Red Blood Count 4.51 x10^6/uL (4.30-5.70) Hemoglobin 13.4 g/dL (13.0-17.5) Hematocrit 38.3 % (39.0-53.0) Mean Corpuscular Volume 85 fL (79-100) Mean Corpuscular Hemoglobin 30 pg (25-35) Mean Corpuscular Hemoglobin Concent 35 g/dL (31-37) Red Cell Distribution Width 14.0 % (11.5-14.5) Platelet Count 193 x10^3/uL (140-400) Neutrophils (%) (Auto) 63 % (31-73) Lymphocytes (%) (Auto) 27 % (24-48) Monocytes (%) (Auto) 8 % (0-9) Eosinophils (%) (Auto) 1 % (0-3) Basophils (%) (Auto) 1 % (0-3) Neutrophils # (Auto) 4.3 x10^3/uL (1.8-7.7) Lymphocytes # (Auto) 1.8 x10^3/uL (1.0-4.8) Monocytes # (Auto) 0.5 x10^3/uL (0.0-1.1) Eosinophils # (Auto) 0.1 x10^3/uL (0.0-0.7) Basophils # (Auto) 0.0 x10^3/uL (0.0-0.2) Sodium Level 146 mmol/L (136-145) Potassium Level 3.4 mmol/L (3.5-5.1) Chloride Level 103 mmol/L (98-107) Carbon Dioxide Level 28 mmol/L (21-32) Anion Gap 15 (6-14) Blood Urea Nitrogen 20 mg/dL (8-26) Creatinine 1.6 mg/dL (0.7-1.3) Estimated GFR (Cockcroft-Gault) 45.1 BUN/Creatinine Ratio 13 (6-20) Glucose Level 125 mg/dL (70-99) Lactic Acid Level 2.1 mmol/L (0.4-2.0) Calcium Level 9.6 mg/dL (8.5-10.1) Magnesium Level 2.1 mg/dL (1.8-2.4) Total Bilirubin 0.7 mg/dL (0.2-1.0) Aspartate Amino Transf (AST/SGOT) 11 U/L (15-37) Alanine Aminotransferase (ALT/SGPT) 23 U/L (16-63) Alkaline Phosphatase 92 U/L (46-116) Troponin I Quantitative < 0.017 ng/mL (0.000-0.055) GD-Urw-F-Type Natriuretic Peptide 864 pg/mL (0-124) Total Protein 6.9 g/dL (6.4-8.2) Albumin 3.4 g/dL (3.4-5.0) Albumin/Globulin Ratio 1.0 (1.0-1.7) Lipase 31 U/L (73-393) Ethyl Alcohol Level < 10 mg/dL (0-10) Urine Collection Type Unknown Urine Color Yellow Urine Clarity Clear Urine pH 6.0 (<5.0-8.0) Urine Specific [place] >=1.030 (1.000-1.030) Urine Protein >=300 mg/dL (NEG-TRACE) Urine Glucose (UA) 500 mg/dL (NEG) Urine Ketones (Stick) Negative mg/dL (NEG) Urine Blood Trace (NEG) Urine Nitrite Negative (NEG) Urine Bilirubin Negative (NEG) Urine Urobilinogen Dipstick 1.0 mg/dL (0.2 mg/dL) Urine Leukocyte Esterase Negative (NEG) Urine RBC 3-5 /HPF (0-2) Urine WBC 1-4 /HPF (0-4) Urine Squamous Epithelial Cells None /LPF Urine Bacteria 0 /HPF (0-FEW) Urine Hyaline Casts Many /HPF Urine Mucus Marked /LPF Urine Opiates Screen Neg (NEG) Urine Methadone Screen Neg (NEG) Urine Barbiturates Neg (NEG) Urine Phencyclidine Screen Neg (NEG) Urine Amphetamine/Methamphetamine Neg (NEG) Urine Benzodiazepines Screen Neg (NEG) Urine Cocaine Screen Neg (NEG) Urine Cannabinoids Screen Neg (NEG) Urine Ethyl Alcohol Neg (NEG) SARS-CoV-2 RNA (JUSTYNA) Negative (Negative) SARS-CoV-2 Antigen (Rapid) Negative (NEGATIVE) Test 09/13/20 01:05 09/13/20 04:05 09/13/20 07:58 09/13/20 09:05 Lactic Acid Level 0.9 mmol/L (0.4-2.0) Troponin I Quantitative < 0.017 ng/mL (0.000-0.055) < 0.017 ng/mL (0.000-0.055) Glucose (Fingerstick) 99 mg/dL (70-99) White Blood Count 7.3 x10^3/uL (4.0-11.0) Red Blood Count 4.39 x10^6/uL (4.30-5.70) Hemoglobin 13.1 g/dL (13.0-17.5) Hematocrit 37.5 % (39.0-53.0) Mean Corpuscular Volume 86 fL (79-100) Mean Corpuscular Hemoglobin 30 pg (25-35) Mean Corpuscular Hemoglobin Concent 35 g/dL (31-37) Red Cell Distribution Width 14.2 % (11.5-14.5) Platelet Count 181 x10^3/uL (140-400) Neutrophils (%) (Auto) 61 % (31-73) Lymphocytes (%) (Auto) 30 % (24-48) Monocytes (%) (Auto) 7 % (0-9) Eosinophils (%) (Auto) 1 % (0-3) Basophils (%) (Auto) 0 % (0-3) Neutrophils # (Auto) 4.5 x10^3/uL (1.8-7.7) Lymphocytes # (Auto) 2.2 x10^3/uL (1.0-4.8) Monocytes # (Auto) 0.5 x10^3/uL (0.0-1.1) Eosinophils # (Auto) 0.1 x10^3/uL (0.0-0.7) Basophils # (Auto) 0.0 x10^3/uL (0.0-0.2) Sodium Level 143 mmol/L (136-145) Potassium Level 3.5 mmol/L (3.5-5.1) Chloride Level 107 mmol/L (98-107) Carbon Dioxide Level 27 mmol/L (21-32) Anion Gap 9 (6-14) Blood Urea Nitrogen 16 mg/dL (8-26) Creatinine 1.0 mg/dL (0.7-1.3) Estimated GFR (Cockcroft-Gault) 93.9 Glucose Level 105 mg/dL (70-99) Calcium Level 8.8 mg/dL (8.5-10.1) Procalcitonin < 0.10 ng/mL (0.00-0.10) Test 09/13/20 11:37 Glucose (Fingerstick) 126 mg/dL (70-99) Laboratory Tests Test 09/12/20 21:50 09/12/20 22:07 09/12/20 22:40 09/12/20 22:50 O2 Saturation 98 % (92-99) Arterial Blood pH 7.42 (7.35-7.45) Arterial Blood pCO2 at Patient Temp 42 mmHg (35-46) Arterial Blood pO2 at Patient Temp 117 mmHg (75-108) Arterial Blood HCO3 26 mmol/L (21-28) Arterial Blood Base Excess 2 mmol/L (-3-3) FiO2 36 White Blood Count 6.7 x10^3/uL (4.0-11.0) Red Blood Count 4.51 x10^6/uL (4.30-5.70) Hemoglobin 13.4 g/dL (13.0-17.5) Hematocrit 38.3 % (39.0-53.0) Mean Corpuscular Volume 85 fL (79-100) Mean Corpuscular Hemoglobin 30 pg (25-35) Mean Corpuscular Hemoglobin Concent 35 g/dL (31-37) Red Cell Distribution Width 14.0 % (11.5-14.5) Platelet Count 193 x10^3/uL (140-400) Neutrophils (%) (Auto) 63 % (31-73) Lymphocytes (%) (Auto) 27 % (24-48) Monocytes (%) (Auto) 8 % (0-9) Eosinophils (%) (Auto) 1 % (0-3) Basophils (%) (Auto) 1 % (0-3) Neutrophils # (Auto) 4.3 x10^3/uL (1.8-7.7) Lymphocytes # (Auto) 1.8 x10^3/uL (1.0-4.8) Monocytes # (Auto) 0.5 x10^3/uL (0.0-1.1) Eosinophils # (Auto) 0.1 x10^3/uL (0.0-0.7) Basophils # (Auto) 0.0 x10^3/uL (0.0-0.2) Sodium Level 146 mmol/L (136-145) Potassium Level 3.4 mmol/L (3.5-5.1) Chloride Level 103 mmol/L (98-107) Carbon Dioxide Level 28 mmol/L (21-32) Anion Gap 15 (6-14) Blood Urea Nitrogen 20 mg/dL (8-26) Creatinine 1.6 mg/dL (0.7-1.3) Estimated GFR (Cockcroft-Gault) 45.1 BUN/Creatinine Ratio 13 (6-20) Glucose Level 125 mg/dL (70-99) Lactic Acid Level 2.1 mmol/L (0.4-2.0) Calcium Level 9.6 mg/dL (8.5-10.1) Magnesium Level 2.1 mg/dL (1.8-2.4) Total Bilirubin 0.7 mg/dL (0.2-1.0) Aspartate Amino Transf (AST/SGOT) 11 U/L (15-37) Alanine Aminotransferase (ALT/SGPT) 23 U/L (16-63) Alkaline Phosphatase 92 U/L (46-116) Troponin I Quantitative < 0.017 ng/mL (0.000-0.055) RA-Odw-D-Type Natriuretic Peptide 864 pg/mL (0-124) Total Protein 6.9 g/dL (6.4-8.2) Albumin 3.4 g/dL (3.4-5.0) Albumin/Globulin Ratio 1.0 (1.0-1.7) Lipase 31 U/L (73-393) Ethyl Alcohol Level < 10 mg/dL (0-10) Urine Collection Type Unknown Urine Color Yellow Urine Clarity Clear Urine pH 6.0 (<5.0-8.0) Urine Specific [place] >=1.030 (1.000-1.030) Urine Protein >=300 mg/dL (NEG-TRACE) Urine Glucose (UA) 500 mg/dL (NEG) Urine Ketones (Stick) Negative mg/dL (NEG) Urine Blood Trace (NEG) Urine Nitrite Negative (NEG) Urine Bilirubin Negative (NEG) Urine Urobilinogen Dipstick 1.0 mg/dL (0.2 mg/dL) Urine Leukocyte Esterase Negative (NEG) Urine RBC 3-5 /HPF (0-2) Urine WBC 1-4 /HPF (0-4) Urine Squamous Epithelial Cells None /LPF Urine Bacteria 0 /HPF (0-FEW) Urine Hyaline Casts Many /HPF Urine Mucus Marked /LPF Urine Opiates Screen Neg (NEG) Urine Methadone Screen Neg (NEG) Urine Barbiturates Neg (NEG) Urine Phencyclidine Screen Neg (NEG) Urine Amphetamine/Methamphetamine Neg (NEG) Urine Benzodiazepines Screen Neg (NEG) Urine Cocaine Screen Neg (NEG) Urine Cannabinoids Screen Neg (NEG) Urine Ethyl Alcohol Neg (NEG) SARS-CoV-2 RNA (JUSTYNA) Negative (Negative) SARS-CoV-2 Antigen (Rapid) Negative (NEGATIVE) Test 09/13/20 01:05 09/13/20 04:05 09/13/20 07:58 09/13/20 09:05 Lactic Acid Level 0.9 mmol/L (0.4-2.0) Troponin I Quantitative < 0.017 ng/mL (0.000-0.055) < 0.017 ng/mL (0.000-0.055) Glucose (Fingerstick) 99 mg/dL (70-99) White Blood Count 7.3 x10^3/uL (4.0-11.0) Red Blood Count 4.39 x10^6/uL (4.30-5.70) Hemoglobin 13.1 g/dL (13.0-17.5) Hematocrit 37.5 % (39.0-53.0) Mean Corpuscular Volume 86 fL (79-100) Mean Corpuscular Hemoglobin 30 pg (25-35) Mean Corpuscular Hemoglobin Concent 35 g/dL (31-37) Red Cell Distribution Width 14.2 % (11.5-14.5) Platelet Count 181 x10^3/uL (140-400) Neutrophils (%) (Auto) 61 % (31-73) Lymphocytes (%) (Auto) 30 % (24-48) Monocytes (%) (Auto) 7 % (0-9) Eosinophils (%) (Auto) 1 % (0-3) Basophils (%) (Auto) 0 % (0-3) Neutrophils # (Auto) 4.5 x10^3/uL (1.8-7.7) Lymphocytes # (Auto) 2.2 x10^3/uL (1.0-4.8) Monocytes # (Auto) 0.5 x10^3/uL (0.0-1.1) Eosinophils # (Auto) 0.1 x10^3/uL (0.0-0.7) Basophils # (Auto) 0.0 x10^3/uL (0.0-0.2) Sodium Level 143 mmol/L (136-145) Potassium Level 3.5 mmol/L (3.5-5.1) Chloride Level 107 mmol/L (98-107) Carbon Dioxide Level 27 mmol/L (21-32) Anion Gap 9 (6-14) Blood Urea Nitrogen 16 mg/dL (8-26) Creatinine 1.0 mg/dL (0.7-1.3) Estimated GFR (Cockcroft-Gault) 93.9 Glucose Level 105 mg/dL (70-99) Calcium Level 8.8 mg/dL (8.5-10.1) Procalcitonin < 0.10 ng/mL (0.00-0.10) Test 09/13/20 11:37 Glucose (Fingerstick) 126 mg/dL (70-99) Images Images CT head INDICATION: Altered mental status TECHNIQUE: Sequential axial images through the head were obtained without the administration of IV contrast. Exposure: One or more of the following in the visualized dose reduction techniques were utilized for this examination: 1. Automated exposure control 2. Adjustment of the MA and/or KV according to patient size 3. Use of iterative of reconstructive technique Comparisons: None FINDINGS: No focal parenchymal lesion or hemorrhage is identified. There is no midline shift or sulcal effacement. Mild patchy hypodensity in the periventricular white matter. No acute vascular t erritory infarction is identified. Byers-white distinction is preserved. The ventricular system is within normal limits without compression hydrocephalus. The basal cisterns are well maintained. The visualized portions of the paranasal sinuses and mastoid air cells are well- pneumatized. No acute fractures. IMPRESSION: Mild small vessel ischemic change, technically age indeterminate without recent prior imaging. CTA head and neck INDICATION: Unresponsive TECHNIQUE: Sequential axial images through the head and neck obtained following the administration of 75 mL of Omni 350 IV contrast. Sagittal and coronal reformatted images were reconstructed from the axial data and reviewed. 3-D reformatted images were reconstructed from the axial data and reviewed. Exposure: One or more of the following in the visualized dose reduction techniques were utilized for this examination: 1. Automated exposure control 2. Adjustment of the MA and/or KV according to patient size 3. Use of iterative of reconstructive technique Comparisons: CT head without contrast same day FINDINGS: CTA NECK: Visualized portions of thoracic aorta are unremarkable. Standard three-vessel arch anatomy. Right common carotid artery is patent without evidence of stenosis, occlusion or aneurysm. Mild plaque at the origin of the right internal carotid artery without significant stenosis. Left common carotid artery is patent without evidence of stenosis, occlusion or aneurysm. Mild plaque at the origin of the left internal carotid artery without significant stenosis. Right vertebral artery is patent to the basilar confluence without evidence of stenosis, occlusion or aneurysm. Left vertebral artery is patent to basilar confluence without evidence of stenosis, occlusion or aneurysm. Visualized paraspinal soft tissues are unremarkable. CTA HEAD: Minimal calcified plaque cavernous segment of the right internal carotid artery without significant stenosis. Right MCA is patent. Right CORAL is patent. Mild calcified plaque at the cavernous segment of the left internal carotid artery without significant stenosis. Left MCA is patent. Left CORAL is patent. Basilar artery is patent without evidence of stenosis, occlusion or aneurysm. hand fur cleaner are patent bilaterally. IMPRESSION: 1. Patent intracranial cervical arterial vasculature without evidence of stenosis, occlusion or aneurysm. 2. Mild plaque at the cavernous segments of the internal carotid arteries bilaterally without significant stenosis. 3. Minimal plaque at the origin of the internal carotid arteries bilaterally without stenosis stenosis. Assessment/Plan Assessment/Plan Impression: New seizure, possibly related to metabolic abnormalities such as low sugar, nothing apparent on examination. He did have some markers for infection which may have just been reaction to the seizure although infection of course could cause a seizure. Now he has returned to his baseline Diabetic neuropathy Recommendations: Levetiracetam, consider taper after 6 months MRI of the brain Electroencephalogram Discussed seizure precautions including that he cannot drive until he has gone 6 months without a seizure Aim for discharge tomorrow Thank you for letting me help with the patient's care. STIVEN CONNELLY MD Sep 13, 2020 13:07
[2020-09-13 15:00] VITALS: BP 155/83
--- NOTE | 2020-09-13 16:30 | EEG ---
DATE OF SERVICE: 09/13/2020 ELECTROENCEPHALOGRAM EEG NUMBER: [id number], performed on 09/13/2020. OBJECTIVE: The patient is a 54-year-old male with new onset of seizure. DESCRIPTION: This is a digital study. Electrodes were placed according to the international 10-20 system. Bipolar and referential montages are available. Activation procedures typically include hyperventilation and intermittent photic stimulation. INTERPRETATION: The waking background consists of 10 Hz, 50-100 microvolt activity, symmetrically distributed over parietooccipital regions and reactive to eye opening. Hyperventilation and intermittent photic stimulation are noncontributory. Stage 1 sleep was achieved with normal electroencephalogram patterns. IMPRESSION: This electroencephalogram with the patient awake and asleep is within normal limits. There is no focal, paroxysmal, or epileptiform activity. Thank you for letting us help with the patient's care. YESENIA/BRITTANI/JULIA DR: Arlene TID: [id number] CC: SAMPSON NORRIS MD
[2020-09-13] MEDS ORDERED: INSU500V SQ (16:48)
[2020-09-13] MEDS ORDERED: SEMA1PEN3 SQ (16:49)
[2020-09-13] MEDS ORDERED: TORS20TA2 PO (17:09)
[2020-09-13] MEDS ORDERED: CARV25TA2 PO (17:09)
[2020-09-13] MEDS ORDERED: POTA10TA6 PO (17:09)
[2020-09-13] MEDS ORDERED: GABA300C18 PO (17:09)
[2020-09-13] MEDS ORDERED: NORT25CA PO (17:09)
[2020-09-13] MEDS ORDERED: LISI-130 PO (17:09)
[2020-09-13] MEDS ORDERED: INSU100I13 SQ (17:09)
[2020-09-13] MEDS ORDERED: LIPITOR80 MG PO (17:09)
[2020-09-13] MEDS ORDERED: MECO10005 PO (17:09)
--- NOTE | 2020-09-13 18:23 | NUR ---
patient very distraught over yelling coming from room 560. RN offered to move patient to a different room down the philippe or on another unit. pt declined and is insisting he be discharged. pt very tearful over the impact the patient yelling has had. RN apologized. Dr. Hahn in room to speak w/ patient and pt continued to insist on leaving. AMA form signed and patient called family for pick out hand. IV's removed from R and L forearm intact. pt escorted out w/ security and ROCIO Gill.
[2020-09-13] MEDS ORDERED: levETIRAcetam 500 MG TABLET PO SCH (21:00)
[2020-09-13] MEDS ORDERED: LACTOBACILLUS RHAMNOSUS GG 1 CAPSULE. PO SCH (21:00)
--- NOTE | 2020-09-13 21:14 | PDOC3 ---
Discharge Summary Visit Information Date of Admission: Sep 13, 2020 Date of Discharge: Sep 13, 2020 Final Diagnosis Problems Medical Problems: (1) Altered mental status Status: Acute (2) Pneumonia Status: Acute (3) Seizure Status: Acute Brief Hospital Course Allergies Allergies Coded Allergies Type Severity Reaction Last Updated Verified No Known Drug Allergies 10/29/18 No Vital Signs Vital Signs Date Time Temp Pulse Resp B/P (MAP) Pulse Ox O2 Delivery O2 Flow Rate FiO2 09/13/20 15:00 98.5 83 16 155/83 (107) 97 Nasal Cannula 98.5 09/13/20 01:09 4.0 Lab Results Laboratory Tests Test 09/12/20 21:50 09/12/20 22:07 09/12/20 22:40 09/12/20 22:50 O2 Saturation 98 % (92-99) Arterial Blood pH 7.42 (7.35-7.45) Arterial Blood pCO2 at Patient Temp 42 mmHg (35-46) Arterial Blood pO2 at Patient Temp 117 mmHg (75-108) Arterial Blood HCO3 26 mmol/L (21-28) Arterial Blood Base Excess 2 mmol/L (-3-3) FiO2 36 White Blood Count 6.7 x10^3/uL (4.0-11.0) Red Blood Count 4.51 x10^6/uL (4.30-5.70) Hemoglobin 13.4 g/dL (13.0-17.5) Hematocrit 38.3 % (39.0-53.0) Mean Corpuscular Volume 85 fL (79-100) Mean Corpuscular Hemoglobin 30 pg (25-35) Mean Corpuscular Hemoglobin Concent 35 g/dL (31-37) Red Cell Distribution Width 14.0 % (11.5-14.5) Platelet Count 193 x10^3/uL (140-400) Neutrophils (%) (Auto) 63 % (31-73) Lymphocytes (%) (Auto) 27 % (24-48) Monocytes (%) (Auto) 8 % (0-9) Eosinophils (%) (Auto) 1 % (0-3) Basophils (%) (Auto) 1 % (0-3) Neutrophils # (Auto) 4.3 x10^3/uL (1.8-7.7) Lymphocytes # (Auto) 1.8 x10^3/uL (1.0-4.8) Monocytes # (Auto) 0.5 x10^3/uL (0.0-1.1) Eosinophils # (Auto) 0.1 x10^3/uL (0.0-0.7) Basophils # (Auto) 0.0 x10^3/uL (0.0-0.2) Sodium Level 146 mmol/L (136-145) Potassium Level 3.4 mmol/L (3.5-5.1) Chloride Level 103 mmol/L (98-107) Carbon Dioxide Level 28 mmol/L (21-32) Anion Gap 15 (6-14) Blood Urea Nitrogen 20 mg/dL (8-26) Creatinine 1.6 mg/dL (0.7-1.3) Estimated GFR (Cockcroft-Gault) 45.1 BUN/Creatinine Ratio 13 (6-20) Glucose Level 125 mg/dL (70-99) Lactic Acid Level 2.1 mmol/L (0.4-2.0) Calcium Level 9.6 mg/dL (8.5-10.1) Magnesium Level 2.1 mg/dL (1.8-2.4) Total Bilirubin 0.7 mg/dL (0.2-1.0) Aspartate Amino Transf (AST/SGOT) 11 U/L (15-37) Alanine Aminotransferase (ALT/SGPT) 23 U/L (16-63) Alkaline Phosphatase 92 U/L (46-116) Troponin I Quantitative < 0.017 ng/mL (0.000-0.055) KJ-Tod-K-Type Natriuretic Peptide 864 pg/mL (0-124) Total Protein 6.9 g/dL (6.4-8.2) Albumin 3.4 g/dL (3.4-5.0) Albumin/Globulin Ratio 1.0 (1.0-1.7) Lipase 31 U/L (73-393) Ethyl Alcohol Level < 10 mg/dL (0-10) Urine Collection Type Unknown Urine Color Yellow Urine Clarity Clear Urine pH 6.0 (<5.0-8.0) Urine Specific [place] >=1.030 (1.000-1.030) Urine Protein >=300 mg/dL (NEG-TRACE) Urine Glucose (UA) 500 mg/dL (NEG) Urine Ketones (Stick) Negative mg/dL (NEG) Urine Blood Trace (NEG) Urine Nitrite Negative (NEG) Urine Bilirubin Negative (NEG) Urine Urobilinogen Dipstick 1.0 mg/dL (0.2 mg/dL) Urine Leukocyte Esterase Negative (NEG) Urine RBC 3-5 /HPF (0-2) Urine WBC 1-4 /HPF (0-4) Urine Squamous Epithelial Cells None /LPF Urine Bacteria 0 /HPF (0-FEW) Urine Hyaline Casts Many /HPF Urine Mucus Marked /LPF Urine Opiates Screen Neg (NEG) Urine Methadone Screen Neg (NEG) Urine Barbiturates Neg (NEG) Urine Phencyclidine Screen Neg (NEG) Urine Amphetamine/Methamphetamine Neg (NEG) Urine Benzodiazepines Screen Neg (NEG) Urine Cocaine Screen Neg (NEG) Urine Cannabinoids Screen Neg (NEG) Urine Ethyl Alcohol Neg (NEG) SARS-CoV-2 RNA (JUSTYNA) Negative (Negative) SARS-CoV-2 Antigen (Rapid) Negative (NEGATIVE) Test 09/13/20 01:05 09/13/20 04:05 09/13/20 07:58 09/13/20 09:05 Lactic Acid Level 0.9 mmol/L (0.4-2.0) Troponin I Quantitative < 0.017 ng/mL (0.000-0.055) < 0.017 ng/mL (0.000-0.055) Glucose (Fingerstick) 99 mg/dL (70-99) White Blood Count 7.3 x10^3/uL (4.0-11.0) Red Blood Count 4.39 x10^6/uL (4.30-5.70) Hemoglobin 13.1 g/dL (13.0-17.5) Hematocrit 37.5 % (39.0-53.0) Mean Corpuscular Volume 86 fL (79-100) Mean Corpuscular Hemoglobin 30 pg (25-35) Mean Corpuscular Hemoglobin Concent 35 g/dL (31-37) Red Cell Distribution Width 14.2 % (11.5-14.5) Platelet Count 181 x10^3/uL (140-400) Neutrophils (%) (Auto) 61 % (31-73) Lymphocytes (%) (Auto) 30 % (24-48) Monocytes (%) (Auto) 7 % (0-9) Eosinophils (%) (Auto) 1 % (0-3) Basophils (%) (Auto) 0 % (0-3) Neutrophils # (Auto) 4.5 x10^3/uL (1.8-7.7) Lymphocytes # (Auto) 2.2 x10^3/uL (1.0-4.8) Monocytes # (Auto) 0.5 x10^3/uL (0.0-1.1) Eosinophils # (Auto) 0.1 x10^3/uL (0.0-0.7) Basophils # (Auto) 0.0 x10^3/uL (0.0-0.2) Sodium Level 143 mmol/L (136-145) Potassium Level 3.5 mmol/L (3.5-5.1) Chloride Level 107 mmol/L (98-107) Carbon Dioxide Level 27 mmol/L (21-32) Anion Gap 9 (6-14) Blood Urea Nitrogen 16 mg/dL (8-26) Creatinine 1.0 mg/dL (0.7-1.3) Estimated GFR (Cockcroft-Gault) 93.9 Glucose Level 105 mg/dL (70-99) Calcium Level 8.8 mg/dL (8.5-10.1) Procalcitonin < 0.10 ng/mL (0.00-0.10) Test 09/13/20 11:37 Glucose (Fingerstick) 126 mg/dL (70-99) Laboratory Tests Test 09/12/20 21:50 09/12/20 22:07 09/12/20 22:40 09/12/20 22:50 O2 Saturation 98 % (92-99) Arterial Blood pH 7.42 (7.35-7.45) Arterial Blood pCO2 at Patient Temp 42 mmHg (35-46) Arterial Blood pO2 at Patient Temp 117 mmHg (75-108) Arterial Blood HCO3 26 mmol/L (21-28) Arterial Blood Base Excess 2 mmol/L (-3-3) FiO2 36 White Blood Count 6.7 x10^3/uL (4.0-11.0) Red Blood Count 4.51 x10^6/uL (4.30-5.70) Hemoglobin 13.4 g/dL (13.0-17.5) Hematocrit 38.3 % (39.0-53.0) Mean Corpuscular Volume 85 fL (79-100) Mean Corpuscular Hemoglobin 30 pg (25-35) Mean Corpuscular Hemoglobin Concent 35 g/dL (31-37) Red Cell Distribution Width 14.0 % (11.5-14.5) Platelet Count 193 x10^3/uL (140-400) Neutrophils (%) (Auto) 63 % (31-73) Lymphocytes (%) (Auto) 27 % (24-48) Monocytes (%) (Auto) 8 % (0-9) Eosinophils (%) (Auto) 1 % (0-3) Basophils (%) (Auto) 1 % (0-3) Neutrophils # (Auto) 4.3 x10^3/uL (1.8-7.7) Lymphocytes # (Auto) 1.8 x10^3/uL (1.0-4.8) Monocytes # (Auto) 0.5 x10^3/uL (0.0-1.1) Eosinophils # (Auto) 0.1 x10^3/uL (0.0-0.7) Basophils # (Auto) 0.0 x10^3/uL (0.0-0.2) Sodium Level 146 mmol/L (136-145) Potassium Level 3.4 mmol/L (3.5-5.1) Chloride Level 103 mmol/L (98-107) Carbon Dioxide Level 28 mmol/L (21-32) Anion Gap 15 (6-14) Blood Urea Nitrogen 20 mg/dL (8-26) Creatinine 1.6 mg/dL (0.7-1.3) Estimated GFR (Cockcroft-Gault) 45.1 BUN/Creatinine Ratio 13 (6-20) Glucose Level 125 mg/dL (70-99) Lactic Acid Level 2.1 mmol/L (0.4-2.0) Calcium Level 9.6 mg/dL (8.5-10.1) Magnesium Level 2.1 mg/dL (1.8-2.4) Total Bilirubin 0.7 mg/dL (0.2-1.0) Aspartate Amino Transf (AST/SGOT) 11 U/L (15-37) Alanine Aminotransferase (ALT/SGPT) 23 U/L (16-63) Alkaline Phosphatase 92 U/L (46-116) Troponin I Quantitative < 0.017 ng/mL (0.000-0.055) QT-Bwg-S-Type Natriuretic Peptide 864 pg/mL (0-124) Total Protein 6.9 g/dL (6.4-8.2) Albumin 3.4 g/dL (3.4-5.0) Albumin/Globulin Ratio 1.0 (1.0-1.7) Lipase 31 U/L (73-393) Ethyl Alcohol Level < 10 mg/dL (0-10) Urine Collection Type Unknown Urine Color Yellow Urine Clarity Clear Urine pH 6.0 (<5.0-8.0) Urine Specific [place] >=1.030 (1.000-1.030) Urine Protein >=300 mg/dL (NEG-TRACE) Urine Glucose (UA) 500 mg/dL (NEG) Urine Ketones (Stick) Negative mg/dL (NEG) Urine Blood Trace (NEG) Urine Nitrite Negative (NEG) Urine Bilirubin Negative (NEG) Urine Urobilinogen Dipstick 1.0 mg/dL (0.2 mg/dL) Urine Leukocyte Esterase Negative (NEG) Urine RBC 3-5 /HPF (0-2) Urine WBC 1-4 /HPF (0-4) Urine Squamous Epithelial Cells None /LPF Urine Bacteria 0 /HPF (0-FEW) Urine Hyaline Casts Many /HPF Urine Mucus Marked /LPF Urine Opiates Screen Neg (NEG) Urine Methadone Screen Neg (NEG) Urine Barbiturates Neg (NEG) Urine Phencyclidine Screen Neg (NEG) Urine Amphetamine/Methamphetamine Neg (NEG) Urine Benzodiazepines Screen Neg (NEG) Urine Cocaine Screen Neg (NEG) Urine Cannabinoids Screen Neg (NEG) Urine Ethyl Alcohol Neg (NEG) SARS-CoV-2 RNA (JUSTYNA) Negative (Negative) SARS-CoV-2 Antigen (Rapid) Negative (NEGATIVE) Test 09/13/20 01:05 09/13/20 04:05 09/13/20 07:58 09/13/20 09:05 Lactic Acid Level 0.9 mmol/L (0.4-2.0) Troponin I Quantitative < 0.017 ng/mL (0.000-0.055) < 0.017 ng/mL (0.000-0.055) Glucose (Fingerstick) 99 mg/dL (70-99) White Blood Count 7.3 x10^3/uL (4.0-11.0) Red Blood Count 4.39 x10^6/uL (4.30-5.70) Hemoglobin 13.1 g/dL (13.0-17.5) Hematocrit 37.5 % (39.0-53.0) Mean Corpuscular Volume 86 fL (79-100) Mean Corpuscular Hemoglobin 30 pg (25-35) Mean Corpuscular Hemoglobin Concent 35 g/dL (31-37) Red Cell Distribution Width 14.2 % (11.5-14.5) Platelet Count 181 x10^3/uL (140-400) Neutrophils (%) (Auto) 61 % (31-73) Lymphocytes (%) (Auto) 30 % (24-48) Monocytes (%) (Auto) 7 % (0-9) Eosinophils (%) (Auto) 1 % (0-3) Basophils (%) (Auto) 0 % (0-3) Neutrophils # (Auto) 4.5 x10^3/uL (1.8-7.7) Lymphocytes # (Auto) 2.2 x10^3/uL (1.0-4.8) Monocytes # (Auto) 0.5 x10^3/uL (0.0-1.1) Eosinophils # (Auto) 0.1 x10^3/uL (0.0-0.7) Basophils # (Auto) 0.0 x10^3/uL (0.0-0.2) Sodium Level 143 mmol/L (136-145) Potassium Level 3.5 mmol/L (3.5-5.1) Chloride Level 107 mmol/L (98-107) Carbon Dioxide Level 27 mmol/L (21-32) Anion Gap 9 (6-14) Blood Urea Nitrogen 16 mg/dL (8-26) Creatinine 1.0 mg/dL (0.7-1.3) Estimated GFR (Cockcroft-Gault) 93.9 Glucose Level 105 mg/dL (70-99) Calcium Level 8.8 mg/dL (8.5-10.1) Procalcitonin < 0.10 ng/mL (0.00-0.10) Test 09/13/20 11:37 Glucose (Fingerstick) 126 mg/dL (70-99) Brief Hospital Course Mr. Hansen is a 54 old male who presented with AMS, seizure, pulmonarty edema vs pneumonia (possible gram negative or possibly gram positive organism), CHAN. Consultation placed to neurology and pulmonology. He was treated with Keppra, frluids, and broad antibiotics. He was recommened to continue Keppra, with further workup per neurology, including MRI. Patient unfortunately left AMA, citing anxiety over being roomed next to a very vocal, demented patient. Patient was A&O x 3 and despite being offered a change in room and discussing risks of leaving AMA (including fall or injury that could result in after suffering seizure) he still opted to leave AMA. Discharge Information Condition at Discharge: Comment Disposition/Orders: Other Scheduled Atorvastatin Calcium (Lipitor) 80 Mg Tablet, 1 TAB PO DAILY for hld, #30 Ref 5 (Reported) Entered as Reported by: CHARMAINE HERNANDEZ on 09/13/201708 Last Taken: Unknown Dose on 09/12/20 Last Action: New Order on 09/13/201708 by CHARMAINE HERNANDEZ Carvedilol (Carvedilol) 25 Mg Tablet, 25 MG PO BIDWMEALS for CARDIAC, (Reported) Entered as Reported by: CHARMAINE HERNANDEZ on 09/13/201708 Last Taken: Unknown Dose on 09/12/20 Last Action: New Order on 09/13/201708 by CHARMAINE HERNANDEZ Gabapentin (Gabapentin) 300 Mg Capsule, 600 MG PO TID for NEUROGENIC PAIN, (Reported) Entered as Reported by: CHARMAINE HERNANDEZ on 09/13/201708 Last Taken: Unknown Dose on 09/12/20 Last Action: New Order on 09/13/201708 by CHARMAINE HERNANDEZ Insulin Glargine,Hum.rec.anlog (Lantus Solostar) 100 Unit/1 Ml Insuln.pen, 15 UN IT SQ QHS for diabetes, #15 Ref 3 (Reported) Entered as Reported by: CHARMAINE HERNANDEZ on 09/13/201708 Last Taken: Unknown Dose on 09/12/20 Last Action: New Order on 09/13/201708 by CHARMAINE HERNANDEZ Insulin Regular, Human (Humulin R) 500 Unit/1 Ml Vial, 20 UNIT SQ TIDBFRMEAL for diabetes, (Reported) Entered as Reported by: CHARMAINE HERNANDEZ on 09/13/201647 Last Taken: Unknown Dose on 09/12/20 Last Action: New Order on 09/13/201647 by CHARMAINE HERNANDEZ Lisinopril (Lisinopril) 40 Mg Tablet, 1 TAB PO DAILY for htn, #30 Ref 5 (Reported) Entered as Reported by: CHARMAINE HERNANDEZ on 09/13/201708 Last Taken: Unknown Dose on 09/12/20 Last Action: New Order on 09/13/201708 by CHARMAINE HERNANDEZ Mecobalamin (B12 Active) 1,000 Mcg Tab.chew, 1,000 MCG PO DAILY for supplement, (Reported) Entered as Reported by: CHARMAINE HERNANDEZ on 09/13/201708 Last Taken: Unknown Dose on 09/12/20 Last Action: New Order on 09/13/201708 by CHARMAINE HERNANDEZ Nortriptyline Hcl (Nortriptyline Hcl) 25 Mg Capsule, 50 MG PO DAILY for mood, (Reported) Entered as Reported by: CHARMAINE HERNANDEZ on 09/13/201708 Last Taken: Unknown Dose on 09/12/20 Last Action: New Order on 09/13/201708 by CHARMAINE HERNANDEZ Potassium Chloride (Klor-Con 10) 10 Meq Tablet.er, 1 TAB PO DAILY for supplement for 30 Days, #30 Ref 0 (Reported) Entered as Reported by: CHARMAINE HERNANDEZ on 09/13/201708 Last Taken: Unknown Dose on 09/12/20 Last Action: New Order on 09/13/201708 by CHARMAINE HERNANDEZ Semaglutide (Ozempic) 1 Mg/0.75 Ml Pen.injctr, 0.5 MG SQ WEEKLY for diabetes, (Reported) Entered as Reported by: CHARMAINE HERNANDEZ on 09/13/201648 Last Taken: Unknown Dose on 09/06/20 Last Action: New Order on 09/13/201648 by CHARMAINE HERNANDEZ Torsemide (Torsemide) 20 Mg Tablet, 1 TAB PO DAILY for chf, #90 Ref 1 (Reported) Entered as Reported by: CHARMAINE HERNANDEZ on 09/13/201708 Last Taken: Unknown Dose on 09/12/20 Last Action: New Order on 09/13/201708 by CHARMAINE HERNANDEZ Scheduled PRN Ondansetron (Ondansetron Odt) 4 Mg Tab.rapdis, 1 TAB PO PRN Q6-8HRS PRN for NAUSEA/VOMITING, #16 Prescribed by: BINTA DUKE, JOSE on 10/29/181816 Justicifation of Admission Dx: Justifications for Admission: Justification of Admission Dx: Yes SHARIF BOB MD Sep 13, 2020 21:14
== END 2020-09-13 18:00 | disposition left against medical advice (07) | DRG 100 ==
LOC: ER 21:55 → ED HOLD 09-13 01:11 → 5 SOUTH 09-13 01:15
PROVIDERS: ADMIT Internal Medicine; ATTEND Internal Medicine
PROC: 4A00X4Z Measurement of Central Nervous Electrical Activity, External Approach (ICD-10-PCS; principal; 2020-09-13)
DX: G40.909 Epilepsy, unspecified, not intractable, without status epilepticus (principal); J15.6 Pneumonia due to other Gram-negative bacteria; N17.0 Acute kidney failure with tubular necrosis; J15.9 Unspecified bacterial pneumonia; E87.2 Acidosis; E78.00 Pure hypercholesterolemia, unspecified; E78.5 Hyperlipidemia, unspecified; F03.90 Unspecified dementia, unspecified severity, without behavioral disturbance, psychotic disturbance, mood disturbance, and anxiety; F41.9 Anxiety disorder, unspecified; I11.0 Hypertensive heart disease with heart failure; E11.42 Type 2 diabetes mellitus with diabetic polyneuropathy; Z53.29 Procedure and treatment not carried out because of patient's decision for other reasons; I25.10 Atherosclerotic heart disease of native coronary artery without angina pectoris; I25.2 Old myocardial infarction; Z20.822 Contact with and (suspected) exposure to COVID-19; I50.9 Heart failure, unspecified; Z79.4 Long term (current) use of insulin; Z79.899 Other long term (current) drug therapy; Z86.73 Personal history of transient ischemic attack (TIA), and cerebral infarction without residual deficits
CPT/HCPCS: 36415; 36600; 51702; 70450; 70496; 70498; 71045; 80048; 80053; 80307; 81001; 82805; 82962; 83605; 83690; 83735; 83880; 84145; 84484; 85025; 87040; 87426; 93005; 95816; 96361; 96365; G0480; J0696; J1650; J1953; J2543; J7030; J7060; Q9967; U0003; U0005; 99285-25; G0378